=== PATIENT | female | born 1955 | race Caucasian/White ===

== ENCOUNTER → 2016-12-31 | Outpatient (CLI) | payer BC ==
[~2016-12-31] VITALS: Ht 157.5 cm; Wt 85.3 kg
[~2016-12-31] MED LIST: ASPI1TAB PO; HYDR25TA6 PO; IBUP800T23 PO; LIDOCAINE 2% INJ 100 MG/5 ML SDV (FOR ANES.) As Ordered ONE; LISI10TA2 PO; LOPR1TAB6 PO; MAGN250T11 PO; METACYCLINE PO; MINO100T PO; NS 1,000 ML IV ONE; PRIN20TA3 PO; PROPOFOL 200 MG/20 ML VIAL As Ordered ONE; RANI150T PO; SIMETHICONE 40MG/0.6ML DROPS 30ML As Ordered ONE; VITA200016 PO; [UNRECOGNIZED DRUG - OTHER]
--- NOTE | 2016-12-31 07:55 | ROOR ---
Patient Name: Toña Witt Procedure Date: 12/31/2016 7:31 AM Date of : 1955 Age: 61 Room: [facility] Gender: Female Note Status: Finalized Procedure: Upper GI endoscopy + Biopsies Indications: Epigastric abdominal pain Providers: Jason Miller MD Referring MD: Jay Sanchez MD Requesting Provider: Medicines: Monitored Anesthesia Care Complications: No immediate complications. Procedure: Pre-Anesthesia Assessment: - The heart rate, respiratory rate, oxygen saturations, blood pressure, adequacy of pulmonary ventilation, and response to care were monitored throughout the procedure. The Endoscope was introduced through the mouth, and advanced to the second part of duodenum. The upper GI endoscopy was accomplished without difficulty. The patient tolerated the procedure well. Findings: The Z-line was regular and was found 35 cm from the incisors. Diffuse mildly erythematous mucosa without bleeding was found in the gastric antrum. Biopsies were taken with a cold forceps for Helicobacter pylori testing. The exam was otherwise without abnormality. Impression: - Z-line regular, 35 cm from the incisors. - Erythematous mucosa in the antrum. Biopsied. - The examination was otherwise normal. Recommendation: - Patient has a contact number available for emergencies. The signs and symptoms of potential delayed complications were discussed with the patient. Return to normal activities tomorrow. Written discharge instructions were provided to the patient. - High fiber diet. - Discharge patient to home. - Continue present medications. - Await pathology results. - Telephone GI clinic for pathology results in 1 week. - Check Portal Online for Path Results.([email or web address] - Return to referring physician. - The findings and recommendations were discussed with the patient's family. Jason Miller MD Jason Miller MD 12/31/2016 7:54:55 AM This report has been signed electronically. Number of Addenda: 0 Note Initiated On: 12/31/2016 7:31 AM Estimated Blood Loss: Estimated blood loss: none.
--- NOTE | 2016-12-31 08:10 | ROOR ---
Patient Name: Toña Witt Procedure Date: 12/31/2016 7:31 AM Date of : 1955 Age: 61 Room: [facility] Gender: Female Note Status: Finalized Procedure: Colonoscopy to Cecum Indications: Screening for colorectal malignant neoplasm Providers: Jason Miller MD Referring MD: Jay Sanchez MD Requesting Provider: Medicines: Monitored Anesthesia Care Complications: No immediate complications. Procedure: Pre-Anesthesia Assessment: - The heart rate, respiratory rate, oxygen saturations, blood pressure, adequacy of pulmonary ventilation, and response to care were monitored throughout the procedure. The Colonoscope was introduced through the anus and advanced to the cecum, identified by appendiceal orifice and ileocecal valve. The colonoscopy was performed without difficulty. The patient tolerated the procedure well. The quality of the bowel preparation was excellent. Findings: The perianal and digital rectal examinations were normal. Non-bleeding internal hemorrhoids were found during retroflexion. The hemorrhoids were small and Grade I (internal hemorrhoids that do not prolapse). Scattered small-mouthed diverticula were found in the recto-sigmoid colon and sigmoid colon. The exam was otherwise without abnormality on direct and retroflexion views. Impression: - Non-bleeding internal hemorrhoids. - Diverticulosis in the recto-sigmoid colon and in the sigmoid colon. - The examination was otherwise normal on direct and retroflexion views. - No specimens collected. - The exam was otherwise normal to the cecum. Recommendation: - Patient has a contact number available for emergencies. The signs and symptoms of potential delayed complications were discussed with the patient. Return to normal activities tomorrow. Written discharge instructions were provided to the patient. - High fiber diet. - Discharge patient to home. - Continue present medications. - Repeat colonoscopy in 10 years for screening purposes. - Return to referring physician. - The findings and recommendations were discussed with the patient's family. Jason Miller MD Jason Miller MD 12/31/2016 8:10:20 AM This report has been signed electronically. Number of Addenda: 0 Note Initiated On: 12/31/2016 7:31 AM Estimated Blood Loss: Estimated blood loss: none.
[2016-12-31 08:30] VITALS: BP 113/69
== END ==
LOC: M OPP 06:44
PROVIDERS: ATTEND Internal Medicine Gastroenterology
DX: Z12.11 Encounter for screening for malignant neoplasm of colon (principal); K29.50 Unspecified chronic gastritis without bleeding; K64.0 First degree hemorrhoids; K57.30 Diverticulosis of large intestine without perforation or abscess without bleeding; R10.13 Epigastric pain; K31.89 Other diseases of stomach and duodenum; Z79.899 Other long term (current) drug therapy
CPT/HCPCS: 43239; 88305; 99156; 99157; G0121

== ENCOUNTER → 2017-01-06 | Outpatient (CLI) | payer BC ==
[~2017-01-06] MED LIST changes: -LIDOCAINE 2% INJ 100 MG/5 ML SDV (FOR ANES.) As Ordered ONE; -NS 1,000 ML IV ONE; -PROPOFOL 200 MG/20 ML VIAL As Ordered ONE; -SIMETHICONE 40MG/0.6ML DROPS 30ML As Ordered ONE
--- NOTE | 2017-01-09 09:53 | SLEEPCENT ---
DATE OF PROCEDURE: 01/06/2017 ORDERED BY: Dr. Shun Thorpe Nocturnal polysomnography was performed for evaluation of sleep apnea syndrome symptoms in this patient with abnormal nocturnal recording oximetry. 7 hours and 46 minutes of data were reviewed. There were 279 minutes of sleep identified. Sleep latency was prolonged at 32 minutes Rapid eye movement (REM) latency was prolonged at 155 minutes. Sleep architecture showed fragmentation. There was a prolonged period of wake between 2:45 and 4:30 resulting in a reduced sleep efficiency of 60.8%. EKG showed a sinus rhythm with rate variabilities surrounding respiratory events. Average heart rate 66 beats per minute. Heart rate ranged 60-90 beats per minute. EEG showed normal wave forms for awake and sleep stages. There were 43 respiratory events identified of 10 seconds in duration or greater for an apnea-hypopnea index of 9.2. The events were primarily obstructive not exclusive to sleep stage nor body posture. Arousals from respiratory events occurred 4.1 times per hour. Oxygen desaturations were seen into the low 80s. There was some minor limb activity more so early in the course of the study. Limb movement arousal index was 6.2. IMPRESSION: 1. Obstructive sleep apnea syndrome (G47.33). Apnea-hypopnea index 9.2. 2. Possible mild periodic limb movement disorder (G47.61). Limb movement arousal index 6.2. RECOMMENDATION: The patient should be encouraged to return to the sleep disorder center for pressure therapy. In the interim, alcohol and sedative avoidance should be practiced and caution exercised during operation of motor vehicles.
== END ==
LOC: M SLEEP 19:59
PROVIDERS: ATTEND Internal Medicine Pulmonary Disease
DX: G47.33 Obstructive sleep apnea (adult) (pediatric) (principal); G47.61 Periodic limb movement disorder

== ENCOUNTER → 2017-01-13 | Outpatient (CLI) | payer BC ==
--- NOTE | 2017-01-16 07:58 | SLEEPCENT ---
DATE OF PROCEDURE: 01/13/2017 ORDERED BY: Dr. Shun Thorpe Nocturnal polysomnography was performed for the titration of pressure therapy in this patient with obstructive sleep apnea syndrome, apnea-hypopnea index 9.2. For testing, a [employer] ComfortGel mask of small size was used. 4 cm of water pressure were applied to the circuit and the lights were extinguished. 7 hours and 39 minutes of data were reviewed. There were 315 minutes of sleep identified. Sleep latency was short at 8 minutes. Rapid eye movement (REM) latency was mildly prolonged at 112 minutes. Sleep architecture improved with optimal pressure therapy. Overall sleep efficiency was reduced at 69.5% due to a period of wake between 3:00 and 4:30 a.m. The EKG showed a sinus rhythm with an average heart rate of 61 beats per minute. EEG showed normal waveforms for awake and sleep. Respiratory events were found best palliated with continuous positive airway pressure (CPAP) at a pressure of +6. Late in the study, a trial of bilevel therapy was attempted. Limb activity appreciated on the first diagnostic study was significantly less on this test. IMPRESSION: Obstructive sleep apnea syndrome (G47.33). RECOMMENDATION: Nightly use of pressure therapy 6 cm of water. Copy To: Dr. Sanchez
== END ==
LOC: M SLEEP 22:00
PROVIDERS: ATTEND Internal Medicine Pulmonary Disease
DX: G47.33 Obstructive sleep apnea (adult) (pediatric) (principal)

== ENCOUNTER → 2017-03-17 | Outpatient (REF) | payer BC ==
[~2017-03-17] MED LIST changes: +IBUP1TAB7 PO; -IBUP800T23 PO
== END ==
LOC: M LAB REF 17:22
PROVIDERS: ATTEND Specialist
DX: Z12.4 Encounter for screening for malignant neoplasm of cervix (principal)

== ENCOUNTER → 2017-03-24 | Outpatient (CLI) | payer BC ==
--- NOTE | 2017-03-24 17:04 | REPMRS ---
Patient History The patient states she had a clinical breast exam in February 2017.Patient is postmenopausal. No known family history of cancer. Digital Mammo Screening Bilat: March 24, 2017 - Exam #: [id number] Bilateral CC and MLO view(s) were taken. Technologist: Bernadette Tomlinson, Technologist Prior study comparison: November 11, 2015, bilateral digital mammo screening bilat performed at [facility]. August 30, 2014, bilateral digital mammo screening bilat performed at [facility]. FINDINGS: There are scattered fibroglandular densities. There has been no change in the appearance of the mammogram from the prior studies. There is a mild amount of residual fibroglandular tissue which is fairly symmetric. There is no interval development of dominant mass, architectural distortion, or clustered microcalcification suggestive of malignancy. ASSESSMENT: BI-RADS/ACR category 1 mammogram. Negative. Recommendation Routine screening mammogram in 1 year (for women over age 40). This mammogram was interpreted with the aid of an FDA-approved computer-aided dectection system. Electronically Signed By: Patrick Vargas MD 03/24/17 [id number]
== END ==
LOC: M RAD 15:34
PROVIDERS: ATTEND Specialist
DX: Z12.31 Encounter for screening mammogram for malignant neoplasm of breast (principal)

== ENCOUNTER → 2017-09-16 | Outpatient (CLI) | payer BC ==
[2017-09-16 07:25] LABS: HEMATOCRIT 41.3 % (36.0-47.0); HEMOGLOBIN 14.2 g/dl (12.0-16.0); MEAN CORPUSCULAR HEMOGLOBIN 30.9 pg (27.0-33.0); MEAN CORPUSCULAR HGB CONC 34.4 g/dl (32.0-36.5); PLATELET COUNT, AUTOMATED 371 10^3/uL (150-450); RED BLOOD COUNT 4.59 10^6/uL (4.00-5.40); RED CELL DISTRIBUTION WIDTH 12.5 % (11.5-14.5); WHITE BLOOD COUNT 6.8 10^3/uL (4.0-10.0)
[2017-09-16 07:52] LABS: ALBUMIN 4.1 GM/DL (3.2-5.2); ALBUMIN/GLOBULIN RATIO 1.32 (1.00-1.93); ALKALINE PHOSPHATASE 65 U/L (45-117); ALT/SGPT 42 U/L (12-78); ANION GAP 5 MEQ/L (8-16); AST/SGOT 24 U/L (7-37); BILIRUBIN,TOTAL 0.4 MG/DL (0.2-1.0); BLOOD UREA NITROGEN 19 MG/DL (7-18); CALCIUM LEVEL 9.1 MG/DL (8.8-10.2); CARBON DIOXIDE LEVEL 33 MEQ/L (21-32); CHLORIDE LEVEL 103 MEQ/L (98-107); CHOLESTEROL LEVEL 226 MG/DL (<200); CHOLESTEROL RISK RATIO 4.808 (<5); GLOMERULAR FILTRATION RATE > 60.0 (>45); GLUCOSE, FASTING 99 MG/DL (80-110); HDL CHOLESTEROL 47 MG/DL (>40); LDL CHOLESTEROL 148.4 MG/DL (<100); MAGNESIUM LEVEL 2.3 MG/DL (1.8-2.4); NON-HDL-C 179 MG/DL; POTASSIUM SERUM 4.2 MEQ/L (3.5-5.1); SODIUM LEVEL 141 MEQ/L (136-145); TOTAL PROTEIN 7.2 GM/DL (6.4-8.2); TRIGLYCERIDES LEVEL 153 MG/DL (<150)
== END ==
LOC: M LAB 06:28
DX: Z00.00 Encounter for general adult medical examination without abnormal findings (principal); G25.81 Restless legs syndrome; E78.00 Pure hypercholesterolemia, unspecified
CPT/HCPCS: 83735

== ENCOUNTER → 2018-03-30 | Outpatient (REF) | payer BC ==
[2018-04-04 00:06] LABS: VARICELLA ZOSTER VIRUS PCR Negative (Negative)
== END ==
LOC: M SFHCPLAZ 15:55
DX: L23.9 Allergic contact dermatitis, unspecified cause (principal)
CPT/HCPCS: 87798

== ENCOUNTER → 2018-06-01 | Outpatient (CLI) | payer BC | LOC: M RAD 12:38 | DX: Z12.31 Encounter for screening mammogram for malignant neoplasm of breast (principal) | CPT/HCPCS: 77067 ==

== ENCOUNTER → 2018-09-15 | Outpatient (REF) | payer BC | LOC: M SFHCPLAZ 06:35 | PROVIDERS: ATTEND Internal Medicine | DX: Z00.00 Encounter for general adult medical examination without abnormal findings (principal); E78.00 Pure hypercholesterolemia, unspecified; I10 Essential (primary) hypertension; Z86.2 Personal history of diseases of the blood and blood-forming organs and certain disorders involving the immune mechanism; E55.9 Vitamin D deficiency, unspecified; I48.0 Paroxysmal atrial fibrillation ==

== ENCOUNTER → 2018-09-19 | Outpatient (REF) | payer BC ==
[2018-09-19 16:59] LABS: HEMATOCRIT 42.6 % (36.0-47.0); HEMOGLOBIN 14.5 g/dl (12.0-15.5); MEAN CORPUSCULAR HEMOGLOBIN 30.7 pg (27.0-33.0); MEAN CORPUSCULAR VOLUME 90.1 fl (80.0-96.0); PLATELET COUNT, AUTOMATED 371 10^3/uL (150-450); RED BLOOD COUNT 4.73 10^6/uL (4.00-5.40)
[2018-09-19 17:04] LABS: ALBUMIN 4.2 GM/DL (3.2-5.2); ALT/SGPT 52 U/L (12-78); BILIRUBIN,TOTAL 0.4 MG/DL (0.2-1.0); BLOOD UREA NITROGEN 15 MG/DL (7-18); CALCIUM LEVEL 9.1 MG/DL (8.8-10.2); CARBON DIOXIDE LEVEL 28 MEQ/L (21-32); CHLORIDE LEVEL 104 MEQ/L (98-107); CREATININE FOR GFR 0.78 MG/DL (0.55-1.30); GLOMERULAR FILTRATION RATE > 60.0 (>45); GLUCOSE, FASTING 109 MG/DL (70-100); MAGNESIUM LEVEL 2.4 MG/DL (1.8-2.4); POTASSIUM SERUM 4.3 MEQ/L (3.5-5.1); SODIUM LEVEL 140 MEQ/L (136-145); TOTAL PROTEIN 7.1 GM/DL (6.4-8.2)
[2018-09-19 17:11] LABS: CHOLESTEROL RISK RATIO 4.391 (<5); THYROID STIMULATING HORMONE 1.43 uIU/ML (0.358-3.740); TOTAL 25(OH) VITAMIN D 50.4 NG/ML (30.0-100.0)
[2018-09-19 17:30] LABS: HEMOGLOBIN A1c 5.8 %
== END ==
LOC: M SFHCCLAY 09:43
PROVIDERS: ATTEND Internal Medicine
DX: E78.00 Pure hypercholesterolemia, unspecified (principal); E55.9 Vitamin D deficiency, unspecified; I48.0 Paroxysmal atrial fibrillation; Z86.2 Personal history of diseases of the blood and blood-forming organs and certain disorders involving the immune mechanism

== ENCOUNTER → 2019-01-01 | Outpatient (REF) | payer BC ==
[~2019-01-01] MED LIST changes: -ASPI1TAB PO; +ASPI81TA26 PO
== END ==
LOC: M SFHCPLAZ 13:46
PROVIDERS: ATTEND Dermatology
DX: D48.5 Neoplasm of uncertain behavior of skin (principal)

== ENCOUNTER → 2019-06-26 | Outpatient (REF) | payer BC ==
[~2019-06-26] MED LIST changes: +LISI10TA15 PO; -LISI10TA2 PO
[2019-06-30 14:58] LABS: HPV HYBRID CAPTURE II Negative (Negative)
== END ==
LOC: M LAB REF 13:37
PROVIDERS: ATTEND Specialist
DX: Z12.4 Encounter for screening for malignant neoplasm of cervix (principal)
CPT/HCPCS: 87624; G0123

== ENCOUNTER → 2019-07-02 | Outpatient (CLI) | payer BC ==
--- NOTE | 2019-07-02 15:54 | REPMRS ---
Patient History The patient states she had a clinical breast exam in 2018. Family history of unknown cancer at age 35 in daughter. Digital Mammo Screening Bilat: July 02, 2019 - Exam #: [id number] Bilateral CC and MLO view(s) were taken. Technologist: Bernadette Tomlinson, Technologist Prior study comparison: June 01, 2018, bilateral digital mammo screening bilat performed at [facility]. March 24, 2017, bilateral digital mammo screening bilat performed at [facility]. November 11, 2015, bilateral digital mammo screening bilat performed at [facility]. FINDINGS: There are scattered fibroglandular densities. There is a needle biopsy marker clip in the right breast. There has been no change in the appearance of the mammogram from the prior studies. There is a mild amount of scattered fibroglandular density which is fairly symmetric. There is no interval development of dominant mass, architectural distortion, or grouped microcalcification suggestive of malignancy. 3-D tomosynthesis shows no additional findings. Assessment: BI-RADS/ACR category 2 mammogram. Benign Findings. Recommendation Routine screening mammogram of both breasts in 1 year (for women over age 40). This patient's Lifetime Breast Cancer Risk is estimated at 8.1 %. This mammogram was interpreted with the aid of an FDA-approved computer-aided dectection system. Electronically Signed By: Ruddy Mcmanus MD 07/02/19 [id number]
== END ==
LOC: M RAD 14:32
PROVIDERS: ATTEND Specialist
DX: Z12.31 Encounter for screening mammogram for malignant neoplasm of breast (principal)

== ENCOUNTER → 2019-07-03 | Outpatient (CLI) | payer BC ==
--- NOTE | 2019-07-03 17:13 | REP ---
MRI right knee without contrast: History: Unilateral primary osteoarthritis right knee. Question meniscal tear. Difficulty walking. Injury one half week ago. Comparison right knee radiographs are from July 02, 2009. No recent radiographs. Technique: Axial, coronal and sagittal imaging planes utilized. T1 and T2-weighted scans obtained with and without fat saturation in the usual fashion. MRI findings: Incidental note is made of superficial vein varicosities at the level of the knee. Cortical and medullary bone signal intensity are normal. There is no evidence of occult fracture. There is a small joint effusion. There is a tiny sliver of fluid in the anatomic location of Ibarra's cyst. No bill Ibarra's cyst is seen. There is some subcutaneous edema anteriorly and medially at the level of the knee. Patellar retinacular structures appear intact. Patellar tendon and quadriceps tendons are intact. There is minimal superior pole patellar spurring at the quadriceps tendon insertion. Anterior and posterior cruciate ligaments are intact. There is no evidence of medial or lateral collateral ligament disruption. There is moderate chondromalacia with partial thickness cartilage irregularity involving the medial and lateral femoral condyles and medial tibial plateau. There is moderate chondromalacia involving the lateral patellar facet and to a lesser extent in the medial patellar articular cartilage. There is increased signal intensity in the midbody of the medial meniscus with mild medial extrusion. Blunting of the inner free margin. Findings consistent with a degenerative midbody medial meniscal tear. There is also a component of the tear in the posterior horn of the medial meniscus as well. No lateral meniscal tear is appreciated. Impression: Complex tear midbody and posterior horn medial meniscus. Some medial meniscal extrusion. Moderate chondromalacia in all three compartments. Small joint effusion. Electronically Signed by Flakito Mcmanus MD 07/03/2019 07:52 P
== END ==
LOC: M RAD 15:48
PROVIDERS: ATTEND Orthopaedic Surgery
DX: M17.11 Unilateral primary osteoarthritis, right knee (principal)

== ENCOUNTER → 2019-07-11 | Outpatient (CLI) | payer BC ==
[2019-07-11 16:27] LABS: ALBUMIN 4.2 GM/DL (3.2-5.2); ALT/SGPT 39 U/L (12-78); BILIRUBIN,DIRECT < 0.1 MG/DL (0.0-0.2); BILIRUBIN,TOTAL 0.5 MG/DL (0.2-1.0); TOTAL PROTEIN 7.6 GM/DL (6.4-8.2)
== END ==
LOC: M LAB 14:54
PROVIDERS: ATTEND Dermatology
DX: B35.1 Tinea unguium (principal)

== ENCOUNTER 2019-07-20 12:45 | Outpatient (RCR) | payer BC | END 2019-07-28 | LOC: M PT 12:45 | PROVIDERS: ATTEND Orthopaedic Surgery | DX: S83.241A Other tear of medial meniscus, current injury, right knee, initial encounter (principal); M25.561 Pain in right knee ==

== ENCOUNTER → 2019-08-08 | Outpatient (CLI) | payer BC ==
[2019-08-08 19:14] LABS: ALT/SGPT 38 U/L (12-78); BILIRUBIN,DIRECT < 0.1 MG/DL (0.0-0.2); BILIRUBIN,TOTAL 0.4 MG/DL (0.2-1.0); TOTAL PROTEIN 7.2 GM/DL (6.4-8.2)
== END ==
LOC: M LAB 14:27
PROVIDERS: ATTEND Dermatology
DX: B35.1 Tinea unguium (principal)

== ENCOUNTER → 2019-08-18 | Outpatient (CLI) | payer BC ==
--- NOTE | 2019-08-18 13:24 | REPVR ---
PROCEDURE INFORMATION: Exam: MR Lumbar Spine Without Contrast. Exam date and time: 08/18/2019 12:33 PM Age: 64 years old Clinical indication: Low back pain TECHNIQUE: Imaging protocol: Multiplanar magnetic resonance images of the lumbar spine without intravenous contrast. COMPARISON: No relevant prior studies available. FINDINGS: Vertebrae: There is mild anterior subluxation of L4 over L5. Otherwise, The lumbar vertebral bodies are normal in height and alignment.No acute fracture or dislocation is seen. There is a hemangioma in the T12 vertebral body. Marrow: There is diffuse prominence of the hematopoietic bone marrow, disproportionate for this patient's age. This can represent the effects of chronic anemia, chronic renal and liver disease, smoking, pharmacologic marrow stimulating factors, and infiltrating processes such as multiple myeloma, metastasis, lymphoma or leukemia. Clinical correlation is recommended. Spinal epidural space: There is no evidence of epidural masses or hemorrhage. Spinal cord: The conus medullaris is normal. The cauda equina nerve roots demonstrate no crowding or displacement. L1-L2: There is no significant degenerative disc herniation.The spinal canal and neural foramina are patent and without significant stenosis. L2-L3: There is no significant degenerative disc herniation.The spinal canal and neural foramina are patent and without significant stenosis. L3-L4: There is a mild diffuse posterior bulge causing mild effacement of the thecal sac.The facet joints demonstrate mild degenerative hypertrophy and sclerosis.There is mild bilateral foraminal stenosis. L4-L5: There is a mild diffuse posterior bulge causing mild effacement of the thecal sac.The facet joints demonstrate marked degenerative narrowing and sclerosis. There is thickening of the ligamentum flavum.There is mild spinal canal narrowing, with an AP canal dimension of 10 mm.There is mild left foraminal stenosis. There is severe right foraminal stenosis.There is compression on the exiting nerve root. L5-S1: There is a mild diffuse posterior bulge causing mild effacement of the thecal sac.The facet joints demonstrate marked degenerative narrowing and sclerosis. There is no evidence of spinal canal narrowing.There is mild bilateral foraminal stenosis. Soft tissues: The prevertebral soft tissues appear normal. IMPRESSION: MRI of the lumbar spine reveals mild multilevel degenerative spondylitic changes and degenerative disc disease as described above. There is diffuse prominence of the hematopoietic bone marrow, disproportionate for this patient's age. This can represent the effects of chronic anemia, chronic renal and liver disease, smoking, pharmacologic marrow stimulating factors, and infiltrating processes such as multiple myeloma, metastasis, lymphoma or leukemia. Clinical correlation is recommended. Electronically signed by: Enoc Swann On 08/18/2019 13:23:58 PM
== END ==
LOC: M RAD 12:27
PROVIDERS: ATTEND Orthopaedic Surgery
DX: M48.061 Spinal stenosis, lumbar region without neurogenic claudication (principal); M43.16 Spondylolisthesis, lumbar region; M51.36 Other intervertebral disc degeneration, lumbar region

== ENCOUNTER → 2019-08-24 | Outpatient (CLI) | payer BC ==
[2019-08-24 16:30] LABS: BASO # 0.1 10^3/uL (0.0-0.2); BASO % 1.1 % (0.0-1.0); EOS # 0.3 10^3/uL (0.0-0.5); EOS % 3.4 % (0.0-3.0); HEMATOCRIT 41.1 % (36.0-47.0); HEMOGLOBIN 13.9 g/dl (12.0-15.5); LYMPH # 2.1 10^3/uL (1.5-5.0); LYMPH % 28.3 % (24.0-44.0); MEAN CORPUSCULAR HEMOGLOBIN 31.4 pg (27.0-33.0); MEAN CORPUSCULAR HGB CONC 33.8 g/dl (32.0-36.5); MEAN CORPUSCULAR VOLUME 92.8 fl (80.0-96.0); MONO # 0.5 10^3/uL (0.0-0.8); MONO % 6.9 % (0.0-5.0); NEUTROPHILS # 4.5 10^3/uL (1.5-8.5); PLATELET COUNT, AUTOMATED 337 10^3/uL (150-450); RED BLOOD COUNT 4.43 10^6/uL (4.00-5.40); WHITE BLOOD COUNT 7.4 10^3/uL (4.0-10.0)
[2019-08-24 16:48] LABS: HEMOGLOBIN A1c 6.3 %
[2019-08-24 17:02] LABS: ALBUMIN 3.8 GM/DL (3.2-5.2); ALT/SGPT 36 U/L (12-78); BILIRUBIN,TOTAL 0.2 MG/DL (0.2-1.0); BLOOD UREA NITROGEN 21 MG/DL (7-18); CALCIUM LEVEL 9.5 MG/DL (8.8-10.2); CARBON DIOXIDE LEVEL 31 MEQ/L (21-32); CHLORIDE LEVEL 104 MEQ/L (98-107); CHOLESTEROL LEVEL 203 MG/DL (<200); CHOLESTEROL RISK RATIO 4.613 (<5); CREATININE FOR GFR 0.81 MG/DL (0.55-1.30); FERRITIN 83 NG/ML (8-252); GLOMERULAR FILTRATION RATE > 60.0 (>45); GLUCOSE, FASTING 107 MG/DL (70-100); HDL CHOLESTEROL 44 MG/DL (>40); LDL CHOLESTEROL 109 MG/DL (<100); MAGNESIUM LEVEL 2.5 MG/DL (1.8-2.4); NON-HDL-C 159 MG/DL; RHEUMATOID FACTOR QUANT < 10.0 IU/ML (<15.0); SODIUM LEVEL 141 MEQ/L (136-145); TOTAL PROTEIN 7.2 GM/DL (6.4-8.2); TRIGLYCERIDES LEVEL 248 MG/DL (<150)
[2019-08-24 17:09] LABS: VITAMIN B12 LEVEL 316 PG/ML
[2019-08-24 17:10] LABS: FOLATE 7.9 NG/ML
[2019-08-24 19:29] LABS: ERYTHROCYTE SEDIMENTATION RATE 7 mm/hr (0-30)
== END ==
LOC: M LAB 15:52
PROVIDERS: ATTEND Internal Medicine
DX: D75.9 Disease of blood and blood-forming organs, unspecified (principal); I10 Essential (primary) hypertension; M19.90 Unspecified osteoarthritis, unspecified site; E78.00 Pure hypercholesterolemia, unspecified; G62.9 Polyneuropathy, unspecified; Z86.2 Personal history of diseases of the blood and blood-forming organs and certain disorders involving the immune mechanism

== ENCOUNTER 2019-08-27 11:56 | Outpatient (RCR) | payer BC | END 2019-08-28 | LOC: M PT 11:56 | PROVIDERS: ATTEND Orthopaedic Surgery | DX: S83.241D Other tear of medial meniscus, current injury, right knee, subsequent encounter (principal); W18.30XD Fall on same level, unspecified, subsequent encounter; Y92.009 Unspecified place in unspecified non-institutional (private) residence as the place of occurrence of the external cause ==

== ENCOUNTER → 2019-09-05 | Outpatient (CLI) | payer BC ==
[2019-09-07 00:06] LABS: Lyme Disease IgG/IgM Antibodie <0.91 ISR (0.00-0.90); Lyme Disease IgM Ab Quantitati <0.80 index (0.00-0.79)
== END ==
LOC: M LAB 13:35
PROVIDERS: ATTEND Internal Medicine
DX: M19.90 Unspecified osteoarthritis, unspecified site (principal)

== ENCOUNTER 2019-09-24 14:14 | Outpatient (RCR) | payer BC | END 2019-09-28 | LOC: M PT 14:14 | PROVIDERS: ATTEND Orthopaedic Surgery | DX: S83.241D Other tear of medial meniscus, current injury, right knee, subsequent encounter (principal); W18.30XD Fall on same level, unspecified, subsequent encounter; Y92.9 Unspecified place or not applicable ==

== ENCOUNTER → 2020-09-09 | Outpatient (CLI) | payer BC ==
--- NOTE | 2020-09-09 11:31 | REPMRS ---
Patient History The patient states she had a clinical breast exam in 08/2020 Patient is postmenopausal. Family history of unknown cancer at age 35 in daughter. Benign excisional biopsy of the right breast. 3D TOMOSYNTHESIS WAS PERFORMED. [facility] 7.8%. Volpara breast density b. Digital Woman Screen Mammo: September 09, 2020 - Exam #: [id number] Bilateral CC and MLO view(s) were taken. Technologist: Concetta Woo, Technologist Prior study comparison: July 02, 2019, bilateral digital mammo screening bilat, performed at [facility]. June 01, 2018, bilateral digital mammo screening bilat, performed at [facility]. FINDINGS: There are scattered fibroglandular densities. There has been no change in the appearance of the mammogram from the prior studies. There is a mild amount of residual fibroglandular tissue which is fairly symmetric. There is no interval development of dominant mass, architectural distortion, or clustered microcalcification suggestive of malignancy. Assessment: BI-RADS/ACR category 1 mammogram. Negative Mammogram. Recommendation Routine screening mammogram in 1 year (for women over age 40). This mammogram was interpreted with the aid of an FDA-approved computer-aided dectection system. Electronically Signed By: Patrick Vargas MD 09/09/20 [id number]
== END ==
LOC: M WHC 10:27
PROVIDERS: ATTEND Specialist
DX: Z12.31 Encounter for screening mammogram for malignant neoplasm of breast (principal); Z80.9 Family history of malignant neoplasm, unspecified; Z86.018 Personal history of other benign neoplasm

== ENCOUNTER → 2020-09-09 | Outpatient (REF) | payer BC ==
[2020-09-09 13:55] LABS: HEMATOCRIT 42.2 % (36.0-47.0); HEMOGLOBIN 13.5 g/dl (12.0-15.5); MEAN CORPUSCULAR HEMOGLOBIN 30.2 pg (27.0-33.0); MEAN CORPUSCULAR VOLUME 94.4 fl (80.0-96.0); PLATELET COUNT, AUTOMATED 373 10^3/uL (150-450); RED BLOOD COUNT 4.47 10^6/uL (4.00-5.40); WHITE BLOOD COUNT 5.1 10^3/uL (4.0-10.0)
[2020-09-09 16:26] LABS: ALBUMIN 3.8 GM/DL (3.2-5.2); ALT/SGPT 41 U/L (12-78); BILIRUBIN,TOTAL 0.6 MG/DL (0.2-1.0); BLOOD UREA NITROGEN 23 MG/DL (7-18); CALCIUM LEVEL 9.5 MG/DL (8.8-10.2); CARBON DIOXIDE LEVEL 33 MEQ/L (21-32); CHLORIDE LEVEL 103 MEQ/L (98-107); CHOLESTEROL LEVEL 235 MG/DL (<200); CHOLESTEROL RISK RATIO 4.519 (<5); CREATININE FOR GFR 0.72 MG/DL (0.55-1.30); GLOMERULAR FILTRATION RATE > 60.0 (>45); GLUCOSE, FASTING 108 MG/DL (70-100); HDL CHOLESTEROL 52 MG/DL (>40); LDL CHOLESTEROL 163 MG/DL (<100); MAGNESIUM LEVEL 2.5 MG/DL (1.8-2.4); NON-HDL-C 183 MG/DL; POTASSIUM SERUM 4.2 MEQ/L (3.5-5.1); SODIUM LEVEL 137 MEQ/L (136-145); TRIGLYCERIDES LEVEL 101 MG/DL (<150)
[2020-09-09 16:30] LABS: CREATININE, URINE 48.3 MG/DL; MALB URINE SIEMENS < 5.0 MG/L; MAU/CREAT RATIO 10.3 MCG/MG (0.0-30.0)
[2020-09-09 16:43] LABS: HEMOGLOBIN A1c 5.4 %
== END ==
LOC: M PLALAB 11:41
PROVIDERS: ATTEND Specialist
DX: Z00.00 Encounter for general adult medical examination without abnormal findings (principal); Z86.2 Personal history of diseases of the blood and blood-forming organs and certain disorders involving the immune mechanism; I10 Essential (primary) hypertension; R73.01 Impaired fasting glucose; E78.00 Pure hypercholesterolemia, unspecified
CPT/HCPCS: 36415; 80053; 80061; 82043; 83036; 83735; 85027; 87624; G0123

== ENCOUNTER → 2021-02-16 | Outpatient (REF) | payer BC ==
[2021-02-16 15:34] LABS: CHOLESTEROL LEVEL 215 MG/DL (<200); CHOLESTEROL RISK RATIO 4.215 (<5); HDL CHOLESTEROL 51 MG/DL (>40); HEPATITIS C VIRUS ABY INDEX < 0.0 INDEX (<0.8); LDL CHOLESTEROL 139 MG/DL (<100); NON-HDL-C 164 MG/DL; TRIGLYCERIDES LEVEL 127 MG/DL (<150)
== END ==
LOC: M PLALAB 11:12
PROVIDERS: ATTEND Internal Medicine
DX: Z11.59 Encounter for screening for other viral diseases (principal); E78.00 Pure hypercholesterolemia, unspecified

== ENCOUNTER → 2021-06-01 | Outpatient (REF) | payer BC | LOC: M SFHCWAGY 15:08 | PROVIDERS: ATTEND Specialist | DX: R10.2 Pelvic and perineal pain (principal) ==

== ENCOUNTER → 2021-06-24 | Outpatient (CLI) | payer BC ==
[~2021-06-24] MED LIST changes: +GASTROGRAFIN SOLUTION 30ML (Q9963) ONE; +ISOVUE-370 76% 100ML VIAL ONE
--- NOTE | 2021-06-24 14:30 | REP ---
INDICATION: PELVIC PAIN. COMPARISON: None. 06/09/2010. TECHNIQUE: Oral contrast was administered. CT abdomen and pelvis performed without IV contrast. CT abdomen and pelvis performed with the intravenous administration of 100 cc of Isovue 370. Sagittal and coronal reconstruction images are performed. FINDINGS: Lung bases: There are a few tiny benign calcified granulomas in each lung base.. Liver: Normal Gallbladder: Prior cholecystectomy. There is no biliary dilatation. Spleen: Normal. Adrenals: There is a benign left adrenal adenoma which measures approximately 2.3 x 1.4 cm. Pancreas: Normal. Kidneys: There is a punctate 2 mm calculus in the lower pole the left kidney.. There is no hydroureteronephrosis bilaterally. Multiple small parapelvic cysts are seen in both kidneys. There is a nonenhancing cystic structure of the lower pole the left kidney which measures 9 mm. Small and large bowel: Unremarkable. Free fluid: None. Abdominal aorta: No aneurysm or dissection. Adenopathy: None. Appendix: Not inflamed. Osseous structures: There are mild diffuse degenerative changes of the spine without compression fracture. There are mild degenerative changes at the hips bilaterally.. Pelvis: No mass. Bladder is unremarkable. There is a small umbilical hernia containing noninflamed fat. IMPRESSION: There are few tiny benign calcified granulomas in each lung base. Prior cholecystectomy, no biliary dilatation. Benign left adrenal adenoma 2.3 x 1.4 cm. Punctate 2 mm calculus lower pole left kidney. Multiple small bilateral parapelvic cysts. Nonenhancing 9 mm cyst lower pole left kidney. No evidence of bowel wall thickening or inflammation. No free air or free fluid. No evidence of a pelvic mass. Small umbilical hernia contains noninflamed fat. <Electronically signed by Patrick Vargas > 06/24/21 [id number]
== END ==
LOC: M PLAIMG 11:10
PROVIDERS: ATTEND Specialist
DX: J84.10 Pulmonary fibrosis, unspecified (principal); Z90.49 Acquired absence of other specified parts of digestive tract; D35.00 Benign neoplasm of unspecified adrenal gland; N20.0 Calculus of kidney; N28.1 Cyst of kidney, acquired; K42.9 Umbilical hernia without obstruction or gangrene
CPT/HCPCS: 74178; Q9963; Q9967

== ENCOUNTER → 2021-07-01 | Outpatient (REF) | payer BC ==
[~2021-07-01] MED LIST changes: -GASTROGRAFIN SOLUTION 30ML (Q9963) ONE; -ISOVUE-370 76% 100ML VIAL ONE
[2021-07-01 13:43] LABS: APPEARANCE, URINE CLEAR (CLEAR); BACTERIA, URINE AUTO NEGATIVE (NEGATIVE); BILIRUBIN, URINE AUTO NEGATIVE (NEGATIVE); BLOOD, URINE BLOOD NEGATIVE (NEGATIVE); COLOR, URINE STRAW (YELLOW); GLUCOSE, URINE (UA) AUTO NEGATIVE (NEGATIVE); KETONE, URINE AUTO NEGATIVE (NEGATIVE); LEUKOCYTE ESTERASE, URINE AUTO NEGATIVE (NEGATIVE); NITRITE, URINE AUTO NEGATIVE (NEGATIVE); PROTEIN, URINE AUTO NEGATIVE (NEGATIVE); RBC, URINE AUTO 0 /HPF (0-3); SQUAMOUS EPITHELIAL CELL UR AU 0 /HPF (0-6); UROBILINOGEN, URINE AUTO 0.2 mg/dL (0.0-2.0); WBC, URINE AUTO 0 /HPF (0-3)
== END ==
LOC: M SFHCPLAZ 12:57
PROVIDERS: ATTEND Internal Medicine
DX: R82.90 Unspecified abnormal findings in urine (principal)

== ENCOUNTER → 2021-07-13 | Outpatient (CLI) | payer BC ==
[~2021-07-13] MED LIST changes: +HYDR12.55 PO
== END ==
LOC: M LABSMTC 09:35
PROVIDERS: ATTEND Anesthesiology
DX: Z01.812 Encounter for preprocedural laboratory examination (principal); Z20.822 Contact with and (suspected) exposure to COVID-19

== ENCOUNTER 2021-07-17 08:45 | Day surgery (SDC) | payer BC ==
[~2021-07-17] VITALS: Ht 157.5 cm; Wt 94.7 kg
[~2021-07-17 08:45] MED LIST changes: +BSS IRR 500ML/OMIDRIA 4ML IRR BAG (OR ONLY) As Ordered ONE; +DUOVISC (0.50ML VISCOAT/0.85ML PROVISC) OPHTH KIT As Ordered ONE; +MOXIFLOXACIN 0.8MG 0.8ML INTRAOCULAR SYRINGE As Ordered ONE; +OFLOXACIN 0.3 % (OCUFLOX) OPTH SOL 5ML OS SCH; +PHENYLEPHRINE 1.5%/LIDOCAINE 1% INTRAOCULAR 0.8ML SYRINGE As Ordered ONE; +PHENYLEPHRINE 2.5% OPHTH SOL 2ML OS SCH; +PROPARACAINE 0.5% OPHTH SOL 15ML OS ONE; +TROPICAMIDE 1% OPHTH SOLN 2ML OS SCH
--- OUTSIDE RECORDS SUMMARY | 2021-07-17 08:48 | CCD | Continuity of Care Document ---
Author Author Toña THORPE DO Organization Unknown Address [address] [place] [address] Phone [phone] Care Team Providers Care Web Press Operator Apprentice Name Role Phone Jay Sanchez M.D. [facility] [phone] Problems Active Problems Provider Date Essential hypertension Epi Blake MD Onset: 08/13/2014 Social History Type Date Description Comments Sex Unknown ETOH Use 5 A Week Tobacco Use Reviewed: 04/15/20 Non Smoker Smoking Status Reviewed: 04/15/20 Non Smoker Exercise Type/Frequency Occasional Mild Exercise Allergies, Adverse Reactions, Alerts Active Allergies Criticality Reaction | Severity Comments Date Penicillin Unable to assess criticality 08/13/2014 Codeine Unable to assess criticality 08/13/2014 Medications Active Medications SIG Qnty Indications Ordering Provide r Date Vitamin D 2000Unit Capsules q d Epi Blake MD 08/13/2014 Magnesium Sulfate 250mg Capsules qd Epi Blake MD 08/13/2014 Minocycline HCL 100mg Tablets qd prn rosacea flare up Epi Blake MD 08/13/2014 Lisinopril 20mg Tablets once a day Unknown Hydrochlorothiazide 12.5mg Tablets 1 by mouth every day 7tabs Unknown Metoprolol Tartrate 25mg Tablets bid Unknown Aspirin 81mg Tablets DR 1/day Unknown CPAP Device 6cm Shun Thorpe DO Famotidine 20mg Tablets as needed 60tabs Unknown Acetaminophen 500mg Tablets 2 tabs by mouth every night 60tabs Unknown Immunizations CPT Code Status Date Vaccine Lot # [id number] Given 07/19/2016 Influenza Virus Split 3 Yrs And Above For Intramuscular Use Vital Signs Date Vital Result Comment 04/16/2021 9:45am BP Systolic 134 mmHg BP Diastolic 72 mmHg Heart Rate 68 /min O2 % BldC Oximetry 97 % Height 62 inches 5'2" Weight 201.00 lb BMI (Body Mass Index) 36.8 kg/m2 [place] Body Weight 110 lb Weight 91.174 kg BSA (Body Surface Area) 1.92 m2 04/15/2020 8:59am BP Systolic 110 mmHg BP Diastolic 70 mmHg Heart Rate 56 /min O2 % BldC Oximetry 98 % Body Temperature 96.2 F Height 62 inches 5'2" Weight 204.00 lb BMI (Body Mass Index) 37.3 kg/m2 [place] Body Weight 110 lb Weight 92.534 kg BSA (Body Surface Area) 1.93 m2 Results Description No Information Available Procedures Date Code Description Status 04/16/2021 07118 Office/Outpatient Established Lo w MDM 20-29 Min Completed 07/02/2019 [id number] Mammogram Completed 06/01/2018 [id number] Mammogram Completed 03/24/2017 [id number] Mammogram Completed 11/11/2015 [id number] Mammogram Completed Medical Devices Description No Information Available Encounters Type Date Location Provider Dx Diagnosis Office Visit 04/16/2021 9:30a [facility] nehemiah Thorpe DO G47.33 Obstructive sleep apnea (tania lt) (pediatric) Assessments Date Code Description Provider 04/16/2021 G47.33 Obstructive sleep apnea (adult) (pediatric) Shun Thorpe DO Plan of Treatment 04/16/2021 - Shun Thorpe DO* G47.33 Obstructive sleep apnea (adult) (pediatric) * * Comments:* ~ Having reviewed the history, physical, and diagnostic findings with the patient, I have recommended continued nightly use of pressure therapy, and we will arrange for a follow-up visit in one year. I will send a prescription to the home care company for needed supplies, and should she develop any issues, she has agreed to call us. * Follow up:* One year follow-up please. Functional Status Description No Information Available Mental Status Description No Information Available Referrals Description No Information Available
--- OUTSIDE RECORDS SUMMARY | 2021-07-17 08:48 | CCD ---
Author Author [facility] [employer] [facility] [employer] Organization [facility] [employer] Address Unknown Phone Unavailable Care Team Providers Care Sprayer Leather Name Role Phone Epi Blake Unavailable PROBLEMS Type Condition ICD9-CM Code [id number] Code Onset Dates Condition S tatus W/U Status Risk SNOMED Code Notes Problem Acne rosacea L71.9 Active confirmed [id number] Continue oral antibiotic as needed, minocycline, and dermatologic follow-up. Problem Osteoarthritis M19.90 Active confirmed 89550 5006 Diffuse osteoarthritis, on p.r.n. Tylenol. She has had previous evaluations with physical therapy and orthopedics. See MRI report from July 2019. Lyme disease testing was negative but she had a normal ESR, CRP, rheumatoid arthritis testing in July 2019. There was concern about a hemopoietic disorder but this was ruled out by laboratory testing in July 2019. She is treating this with exercise primarily. Problem Vitamin D deficiency E55.9 Active confirmed [id number] Discovered 10/07. Last Vitamin D level was 50 in August 2018, on replacement therapy. Problem Paroxysmal atrial fibrillation I48.0 Active confir med [id number] She had atrial fibrillation requiring hospitalization in August 2015. She had mild hypokalemia at presentation. Her magnesium level was apparently normal. Thyroid function tests were normal. Left atrial diameter was 4.3 centimeters on echocardiogram in August 2015, 4 cm on a stress echo in December 2016, with normal left ventricular function and no evident valvular heart disease. She is now on a beta jailyn. An event monitor was negative in December 2016 for atrial fibrillation episodes. She is taking a baby aspirin a day and has discussed anticoagulation with her single needle tufting machine operator, who has recommended but she has been refractory. She has not had significant palpitations since she started CPAP therapy. Problem History of iron deficiency anemia Z86.2 Active confirmed [id number] CBC was normal most recently in August 2020. She has been off iron since 2011. She has been through menopause. She is up-to-date with colonoscopies. Problem Elevated fasting glucose R73.01 Active confirmed 39137748 Her most recent fasting glucose was stable at 108 with a hemoglobin A1c of 5.4% in August 2020. No need for pharmacologic intervention. Problem Hypertension I10 Active confirmed 1046886 3 She had been on lisinopril hydrochlorothiazide 10/12.5 mg daily until her hospitalization in August 2015 for atrial fibrillation, at which time metoprolol was added to her regimen, her hydrochlorothiazide was reduced to 6.25 mg daily, and lisinopril was increased to 20 mg daily. Since hydrochlorothiazide cannot be taken at such a low dose, she is to continue 12-1/2 mg daily. Her blood pressure control is optimal as of outpatient visits review when I saw her in September 2020 remotely. Problem Rosacea L71.9 Active confirmed 676975142 Problem Restless leg syndrome G25.81 Active confirmed 84011079 In general, her symptoms became better controlled with adequate iron stores and a magnesium supplement. She has issues in the early evening hours but not during the night. Problem Sensory neuropathy G62.9 Active confirmed 9 3412270 She describes neuropathic symptoms of her hands which I think is probably carpal tunnel syndrome. She also has heel numbness which may relate to compression neuropathy. Serologic evaluations been negative in the past and I will repeat B12 and folate levels in August 2021. Problem Lung nodule R91.1 Active confirmed 31158930 5 She had a lesion on her CT scan in January 2013 this was stable on CT in 07/2014. No further CT's are needed. Problem Hypercholesterolemia E78.00 Active confirmed 27700193 Lipids had been historically borderline but acceptable for primary prevention. Her LDL was most recently elevated at 163 in August 2020. We discussed statin therapy and she is not enthusiastic. She will have her lipids rechecked in January 2021 just before her cardiology visit. Problem Obstructive sleep apnea syndrome G47.33 Active conf irmed [id number] This was diagnosed in Spring 2016 and she is on CPAP +6 cm of water. ALLERGIES Allergen (clinical drug ingredient) Drug/Non Drug Allergy do cumented on EMR Reaction Allergy Type Onset Date Status Codeine Phosphate([facility] Code:[address]-46) Unknown Drug Allergy Active Penicillin (For Allergies Use Only) Unknown Drug Allerg y Active ENCOUNTERS from 1955 to 2021-06-11 Encounter Location Date Provider Diagnosis [facility] [address] [facility] [phone] [place] [address] May, Epi Blake Pelvic pain R10.2 IMMUNIZATIONS Vaccine Route Administration Date Status COVID-19 dose #2 given elsewhere Unspecified Unknown Nov Administered COVID-19 dose #1 given elsewhere Unspecified Unknown Nov Administered SOCIAL HISTORY Tobacco Use: Social History Observation Description Date Details (start date - stop date) Never Smoker Sex Assigned At : Social History Observation Description Sex Assigned At Unknown Audit Question Answer Notes Total Score: 4 Interpretation: Alcohol Education Language: Question Answer Notes Languages spoken: Telugu Sabianist: Question Answer Notes Sabianist No adventist beliefs that would impact health care. Domestic Violence: Question Answer Notes Status: Sexual Hx: Question Answer Notes Had sex in the last 12 months (vaginal, oral, or anal)? Yes Have you ever had an STD? No with Men only Drug and Alcohol Question Answer Notes Total Score: 0 Interpretation: No problems reported Tobacco Use: Question Answer Notes Are you a: never smoker never smoker REASON FOR REFERRAL No Information VITAL SIGNS No information MEDICATIONS Medication SIG (Take, Route, Frequency, Duration) Notes Start Da te End Date Status Minocycline 100 MG 1 capsule Orally daily prn for 90 days Active hydroCHLOROthiazide 12.5 MG 1 tablet Orally Once a day for 90 Active Metoprolol Tartrate 25 MG 1 tablet Orally Twice a day for 90 Active Lisinopril 20 mg 1 tablet Orally Once a day for 90 Active Terbinafine HCl 250 MG 1 tablet Orally Once a day for 90 days Not-Taking Terbinafine HCl 1 % 1 application Externally Once a day for 28 day(s) Not-Taking Ciclopirox 8 % 1 application Externally Once a day for 28 day(s) Not-Taking Vitamin D 2000 UNIT 1 tablets Orally Once a day Active Magnesium 250 MG 1 tablet with a meal Orally Once a day Active Terbinafine HCl 250 MG TAKE ONE TABLET BY MOUTH ONCE A DAY for 90 Not-Taking Aspir-81 81 MG 1 tablet Orally Once a day for 30 day(s) Aug, Active Pepcid AC Maximum Strength 20 MG 1 tablet at bedtime a s needed Orally Once a day Active Ibuprofen 800 mg 1 tablet Orally twice a day as needed for pain for 90 days Active PROCEDURES No Information RESULTS No Results REASON FOR VISIT No Information MEDICAL (GENERAL) HISTORY Type Description Date Medical History Hypercholesterolemia Medical History Hypertension Medical History Paroxysmal atrial fibrillation Medical History Obstructive sleep apnea syndrome Medical History Osteoarthritis Medical History Restless leg syndrome Medical History Acne rosacea Medical History Vitamin D deficiency Medical History Sensory neuropathy Medical History History of iron deficiency anemia Surgical History Cesarian section Surgical History Cholecystectomy 1992 Surgical History Breast biopsy 01/2006 Surgical History Colonoscopy 07/2006 Surgical History Hysteroscopy with D&C 10/2006 Surgical History EGD and colonoscopy 12/2016 Hospitalization History AFIB 08/2015 Hospitalization History Childbirth Goals Section No Information Health Concerns No Information MEDICAL EQUIPMENT No Information MENTAL STATUS No Information FUNCTIONAL STATUS No Information ASSESSMENTS Encounter Date Diagnosis Assessment Notes Treatment Notes Treatm ent Clinical Notes May, Pelvic pain (ICD-10 - R10.2) PLAN OF TREATMENT Treatment Notes Test Name Order Date CT ABD & Pelvis w/o FOL by MARGARETTE 2021-06-09 Next Appt Details Provider Name:Rip Cameron, 07-31 01:15:00 PM, [address] [place] [address], , [place], [place], [facility], Insurance Providers Payer Name Payer Address Payer Phone Insured Name Patient Relati onship to Insured Coverage Start Date Coverage End Date [facility] [place] [facility] [phone] [facility] [place] [id number] BEATRIZ WITT [id number]
--- OUTSIDE RECORDS SUMMARY | 2021-07-17 08:48 | CCD ---
Author Author [facility] Organization [facility] Address Unknown Phone Unavailable Care Team Providers Care Histotechnologist Supervisor Name Role Phone Ila, Benjamin Hoffmann DO Unavailable Unavailable Rechlin, Benjamin Hoffmann DO Unavailable Unavailable Rechlin, Benjamin Hoffmann DO Unavailable Unavailable Rechlin, Benjamin Hoffmann DO Unavailable Unavailable Rechlin, Benjamin Hoffmann DO Unavailable Unavailable Rechlin, Benjamin Hoffmann DO Unavailable Unavailable Rechlin, Benjamin Hoffmann DO Unavailable Unavailable Rechlin, Benjamin Hoffmann DO Unavailable Unavailable Rechlin, Benjamin Hoffmann DO Unavailable Unavailable Rechlin, Benjamin Hoffmann DO Unavailable Unavailable Rechlin, Benjamin Hoffmann DO Unavailable Unavailable Rechlin, Benjamin Hoffmann DO Unavailable Unavailable Rechlin, Benjamin Hoffmann DO Unavailable Unavailable Rechlin, Benjamin Hoffmann DO Unavailable Unavailable Rechlin, Benjamin Hoffmann DO Unavailable Unavailable Rechlin, Benjamin Hoffmann DO Unavailable Unavailable Rechlin, Benjamin Hoffmann DO Unavailable Unavailable Rechlin, Benjamin Hoffmann DO Unavailable Unavailable Rechlin, Benjamin Hoffmann DO Unavailable Unavailable Rechlin, Benjamin Hoffmann DO Unavailable Unavailable Rechlin, Benjamin Hoffmann DO Unavailable Unavailable Rechlin, Benjamin Hoffmann DO Unavailable Unavailable Rechlin, Benjamin Hoffmann DO Unavailable Unavailable Rechlin, Benjamin Hoffmann DO Unavailable Unavailable Rechlin, Benjamin Hoffmann DO Unavailable Unavailable Rechlin, Benjamin Hoffmann DO Unavailable Unavailable Rechlin, P Shun DO Unavailable Unavailable Rechlin, P Shun DO Unavailable Unavailable Rechlin, P Shun DO Unavailable Unavailable Rechlin, P Shun DO Unavailable Unavailable Rechlin, P Shun DO Unavailable Unavailable Rechlin, P Shun DO Unavailable Unavailable Rechlin, P Shun DO Unavailable Unavailable Rechlin, P Shun DO Unavailable Unavailable Rechlin, P Shun DO Unavailable Unavailable Rechlin, P Shun DO Unavailable Unavailable Rechlin, P Shun DO Unavailable Unavailable Rechlin, P Shun DO Unavailable Unavailable Rechlin, P Shun DO Unavailable Unavailable Rechlin, P Shun DO Unavailable Unavailable Rechlin, P Shun DO Unavailable Unavailable Rechlin, P Shun DO Unavailable Unavailable Rechlin, P Shun DO Unavailable Unavailable Rechlin, P Shun DO Unavailable Unavailable Rechlin, P Shun DO Unavailable Unavailable Rechlin, P Shun DO Unavailable Unavailable Rechlin, P Shun DO Unavailable Unavailable Rechlin, P Shun DO Unavailable Unavailable Rechlin, P Shun DO Unavailable Unavailable Rechlin, P Shun DO Unavailable Unavailable Rechlin, P Shun DO Unavailable Unavailable [place], N Epi PARK ATTENDANT Unavailable Unavailable [place]annah, N Epi PARK ATTENDANT Unavailable Unavailable [place], N Epi PARK ATTENDANT Unavailable Unavailable [place], N Epi PARK ATTENDANT Unavailable Unavailable [place], N Epi PARK ATTENDANT Unavailable Unavailable [place], N Epi PARK ATTENDANT Unavailable Unavailable [place], N Epi PARK ATTENDANT Unavailable Unavailable [place], N Epi PARK ATTENDANT Unavailable Unavailable [place], N Epi PARK ATTENDANT Unavailable Unavailable [place], N Epi PARK ATTENDANT Unavailable Unavailable [place], N Epi PARK ATTENDANT Unavailable Unavailable [place], N Epi PARK ATTENDANT Unavailable Unavailable [place], N Epi PARK ATTENDANT Unavailable Unavailable [place], N Epi PARK ATTENDANT Unavailable Unavailable [place], N Epi PARK ATTENDANT Unavailable Unavailable [place], N Epi PARK ATTENDANT Unavailable Unavailable [place], N Epi PARK ATTENDANT Unavailable Unavailable [place], N Epi PARK ATTENDANT Unavailable Unavailable [place], N Epi PARK ATTENDANT Unavailable Unavailable [place], N Epi PARK ATTENDANT Unavailable Unavailable [place], N Epi PARK ATTENDANT Unavailable Unavailable [place], N Epi PARK ATTENDANT Unavailable Unavailable [place], N Epi PARK ATTENDANT Unavailable Unavailable [place], N Epi PARK ATTENDANT Unavailable Unavailable [place], N Epi PARK ATTENDANT Unavailable Unavailable [place], N Epi PARK ATTENDANT Unavailable Unavailable [place], N Epi PARK ATTENDANT Unavailable Unavailable [place], N Epi PARK ATTENDANT Unavailable Unavailable [place], N Epi PARK ATTENDANT Unavailable Unavailable [place], N Epi PARK ATTENDANT Unavailable Unavailable [place], N Epi PARK ATTENDANT Unavailable Unavailable [place], N Epi PARK ATTENDANT Unavailable Unavailable [place], N Epi PARK ATTENDANT Unavailable Unavailable Re-disclosure Warning The records that you are about to access may contain information from federally-assisted alcohol or drug abuse programs. If such information is present, then the following federally mandated warning applies: This information has been disclosed to you from records protected by federal confidentiality rules (42 CFR part 2). The federal rules prohibit you from making any further disclosure of this information unless further disclosure is expressly permitted by the written consent of the person to whom it pertains or as otherwise permitted by 42 CFR part 2. A general authorization for the release of medical or other information is NOT sufficient for this purpose. The Federal rules restrict any use of the information to criminally investigate or prosecute any alcohol or drug abuse patient.The records that you are about to access may contain highly sensitive health information, the redisclosure of which is protected by Article 27-F of the [facility] Public Health law. If you continue you may have access to information: Regarding HIV / AIDS; Provided by facilities licensed or operated by the [facility] Office of Mental Health; or Provided by the [facility] Office for People With Developmental Disabilities. If such information is present, then the following [facility] mandated warning applies: This information has been disclosed to you from confidential records which are protected by state law. State law prohibits you from making any further disclosure of this information without the specific written consent of the person to whom it pertains, or as otherwise permitted by law. Any unauthorized further disclosure in violation of state law may result in a fine or senior care sentence or both. A general authorization for the release of medical or other information is NOT sufficient authorization for further disc losure. Family History Family Member Name Family Member Gender Family Member Status Date o f Status Description Data Source(s) Unknown Unknown Problem MEDENT ([facility], ) Unknown Unknown Problem MED[facility] ([facility] mother dementia - ? vascular, father Unknown Female Encounters Encounter Providers Location Date Indications Data Source(s ) [place] [address] [facility] [address] 06/09/2021 12:00:00 AM EDT eCW1 ([facility]) Outpatient Attender: Shun Marie/Steven/Russ/French duque 04/16/2021 09:30:00 AM EDT MEDENT ([facility]) Outpatient Attender: Epi Nuñez NP SJP.SANTANA-SJP.SANTANA 021 12:00:00 AM EDT - 02/24/2021 01:36:01 PM EDT [facility] TeleMedicine Est. Pt. Level 3 [address] [place] [address] 09/29/2020 12:00:00 AM EST eCW1 (Critical access hospital) [facility] [address] [address] 09/26/2020 12:00:00 AM EST eCW1 ([facility]) [place] [address] [facility] [place] [address] 09/23/2020 12:00:00 AM EST eCW1 ([facility]) [place] [address] [address] 09/09/2020 12:00:00 AM EST eCW1 ([facility]) Outpatient [address] [address] 08/12/2020 12:00:00 AM EST eCW1 ([facility]) Immunizations Vaccine Date Status Description Data Source(s) COVID-19 dose #2 given elsewhere Unspecified 12/23/2020 10:2 2:00 AM EDT completed eCW1 ([facility]) COVID-19 VACCINE Pfizer 12/23/2020 12:00:00 AM EDT completed [facility] Vaccine Series Complete: YESThis Data wa s Submitted to [facility] Via [employer]. COVID-19 dose #1 given elsewhere Unspecified 12/02/2020 10:1 4:00 AM EDT completed eCW1 ([facility]) COVID-19 VACCINE Pfizer 12/02/2020 12:00:00 AM EDT completed [facility] Vaccine Series Complete: NOThis Data was Submitted to [facility] [employer]. Medications Medication Brand Name Start Date Product Form Dose Route Admi nistrative Instructions Pharmacy Instructions Status Indications Reaction Description Data Source(s) 1 % 06/17/2021 12:00:00 AM EDT drops,suspension 10 INSTILL 1 DROP INTO THE LEFT EYE FOUR TIMES A DAY, START 3 DAYS PRIOR TO SURGERY INSTILL 1 DROP INTO THE LEFT EYE FOUR TIMES A DAY, START 3 DAYS PRIOR TO SURGERY SOLD: 06/22/2021 [facility] 0.5 % 06/17/2021 12:00:00 AM EDT drops 5 INSTILL 1 DROP INTO THE LEFT EYE FOUR TIMES A DAY, START 3 DAYS PRIOR TO SURGERY INSTILL 1 DROP INTO THE LEFT EYE FOUR TIMES A DAY, START 3 DAYS PRIOR TO SURGERY SOLD: 06/22/2021 [facility] Polymyxin B 01501 UNT/ML / Trimethoprim 1 MG/ML Ophthalmic Solution 10,000 unit- 1 mg/mL POLYMYXIN B SULF/TRIMETHOPRIM 06/17/2021 12:00:00 AM EDT drops 1 0 INSTILL 1 DROP IN THE LEFT EYE FOUR TIMES A DAY START 3 DAYS PRIOR TO SURGERY INSTILL 1 DROP IN THE LEFT EYE FOUR TIMES A DAY START 3 DAYS PRIOR TO SURGERY SOLD: 06/22/2021 [facility] Insurance Providers Payer name Policy type / Coverage type Policy ID Covered alliance party ID Covered alliance party's relationship to marie Policy Marie Plan Information [id number] [place] 306/806 [id number] HU2 [id number] [place] 302/307 [id number] HU2 [id number] [place]/307 [id number] HU2 [id number] [employer] BCBS [id number] [facility] VYS [employer] BCBS [id number] [place] P[place] 302/307 [id number] [id number] BCBS of [facility] 0 [id number] Famil y Dependent Kevin Witt 0 [place] P[place] 302/307 [id number] HU2 [id number] ANSI-Commercial [id number] [place] P[place] 302/307 [id number] HU2 [id number] [employer] BCBS Health Maintenance Organization (HMO) [id number] Family Dependent [id number] ANSI-Commercial [id number] BS Of [place] Commercial [id number] Family Dependent V [id number] BS Of [place] Commercial [id number] Family Dependent Y [id number] [place] 306/806 [id number] HU2 [id number] [employer] BCBS B [id number] P VYS [place] 306/806 [id number] HU2 [id number] BS [place] Commercial [id number] Family Dependent ANSI-Commercial [id number] [place] P[place] 302/307 [id number] HU2 [id number] [place] 302/307 [id number] HU2 [id number] [employer] BCBS B [id number] O VYS [employer] BCBS B [id number] S VYS ANSI-Commercial [id number] ANSI-Commercial [id number] ANSI-Commercial [id number] ANSI-Commercial [id number] Problems, Conditions, and Diagnoses Code Display Name Description Problem Type Effective Dates Data Source(s) I10 Essential (primary) hypertension Essential (primary) h ypertension Diagnosis 02/24/2021 01:07:[address] [facility] I48.0 Paroxysmal atrial fibrillation Paroxysmal atrial fibri llation Diagnosis 02/24/2021 01:07:[address] [facility] Surgeries/Procedures Procedure Description Date Indications Data Source(s) OFFICE OUTPATIENT VISIT 15 MINUTES 04/16/2021 12:00:00 AM EDT CARLOS ([facility], ) Results No Information Social History Code Duration Value Status Description Data Source(s ) Smoking 06/01/2021 12:00:00 AM EDT Never Smoker completed Never S moker eCW1 ([facility]) Smoking 09/29/2020 12:00:00 AM EST Never Smoker completed Never S moker eCW1 ([facility]) Smoking 09/09/2020 12:00:00 AM EST Never Smoker completed Never S moker eCW1 ([facility]) Smoking 09/09/2020 12:00:00 AM EST Never Smoker completed Never S moker eCW1 ([facility]) Smoking 08/12/2020 12:00:00 AM EST Never Smoker completed Never S moker eCW1 ([facility]) Vital Signs ID Date Data Source UNK Name Value Range Interpretation Code Description Data Source(s) Systolic blood pressure 134 mm[Hg] 134 mm[Hg] M KHANH ([facility], ) Diastolic blood pressure 72 mm[Hg] 72 mm[Hg] CARLOS ([facility], ) Heart rate 68 /min 68 /min CARLOS ([facility], ) Oxygen saturation in Arterial blood by Pulse oximetry 97 % 97 % [facility] ([facility]) Body height 62 [in_i] 62 [in_i] [facility] ([facility]) 5'2" Body weight 201.00 [lb_av] 201.00 [lb_av] MEDEN T ([facility]) Body mass index (BMI) [Ratio] 36.8 kg/m2 36.8 k g/m2 [facility] ([facility]) [place] body weight 110 [lb_av] 110 [lb_av] MEDEN T ([facility]) Body weight 91.174 kg 91.174 kg [facility] ([facility]) Body surface area Derived from formula 1.92 m2 1.92 m2 [facility] ([facility]) Systolic blood pressure 118 mm[Hg] 118 mm[Hg] [facility] Diastolic blood pressure 66 mm[Hg] 66 mm[Hg] [facility] Heart rate 56 /min 56 /min [facility] Respiratory rate 16 /min 16 /min [facility] Body height 157.[address] [facility] Body weight 93.[address] [facility] Body mass index (BMI) [Ratio] 37.86 kg/m2 37.86 kg/m2 [facility] Body weight 204 [lb_av] 204 [lb_av] eCW1 ([facility]) Body height 62.5 [in_i] 62.5 [in_i] W1 ([facility]) Body mass index (BMI) [Ratio] 36.71 kg/m2 36.71 kg/m2 W1 ([facility]) Body weight 204.0 [lb_av] 204.0 [lb_av] W1 ([facility]) Body height 62.5 [in_i] 62.5 [in_i] eCW1 ([facility]) Body mass index (BMI) [Ratio] 36.71 kg/m2 36.71 kg/m2 [facility] ([facility]) Systolic blood pressure 128 mm[Hg] 128 mm[Hg] e CW1 ([facility]) Diastolic blood pressure 74 mm[Hg] 74 mm[Hg] W1 ([facility]) Body weight 205 [lb_av] 205 [lb_av] [facility] ([facility]) Body height [in_i] [facility] ([facility]) Body mass index (BMI) [Ratio] 36.89 kg/m2 36.89 kg/m2 [facility] ([facility]) Systolic blood pressure 138 mm[Hg] 138 mm[Hg] e CW1 ([facility]) Diastolic blood pressure 84 mm[Hg] 84 mm[Hg] [facility] ([facility])
[2021-07-17] MEDS ORDERED: MIDAZOLAM INJ 2MG/2ML VIAL (J2250 PER 1MG) As Ordered ONE (10:57)
[2021-07-17 11:50] VITALS: BP 134/63
--- NOTE | 2021-07-18 11:44 | RO ---
OPERATIVE NOTE DATE OF OPERATION: 07/17/2021 PREOPERATIVE DIAGNOSIS: Mature cataract left eye. POSTOPERATIVE DIAGNOSIS: Mature cataract left eye. PROCEDURE: Phacoemulsification, cataract extraction, implantation intraocular lens left eye. SURGEON: Kadeem Wilson MD TRANSLATIONAL SPECIALIST: COMPLICATIONS: None. ESTIMATED BLOOD LOSS: Zero mL. CONDITION: Excellent to recovery room with shield over left eye. LENS: [employer]of IQ PanOptix Trifocal model TFNT00, power 21.5 diopter, phaco energy 2.38 CDE. ANESTHESIA: MAC and topical. INDICATIONS FOR PROCEDURE: The patient experienced decreased vision associated with cataract formation and this was confirmed with slit lamp. Informed consent was obtained for cataract surgery and placement of lens. She wished to have trifocal lens and visual aberrations sometimes associated with those lenses were reviewed. She gave informed consent. DESCRIPTION OF PROCEDURE: Prior to entering the operating room the patient was identified, the left eye was marked. She was wheeled to the OR suite, positioned on stretcher. Topical Tetracaine was placed in both eyes. She was prepped and draped with 5% Povidone iodine to lids and lashes. Lashes taped with Tegaderm. Speculum was placed in the left eye. 1 mm side port was created in 5:30 position, 1% preservative-free Lidocaine was injected. Viscoat was injected. A 2.6 mm step-groove clear corneal incision was made temporally. A bent cystitome, needle and Utrata forceps were used to fashion continuous curvilinear capsulorrhexis. BSS was used to hydrodissect. The lens was found to rotate freely. It was phacoemulsified using yshmdw-oif-nkvyjus technique. Residual cortex was removed with I/A. Provisc was injected to expand the capsular bag and anterior chamber and pressure was checked. The intraoperative aberrometer was used to check the eyes power and cylinder for the lens. The predicted lens matched the ORA calculated lens. The above mentioned lens was injected using lens delivery system, positioned using Craig hook. Residual viscoelastic was removed with the I/A. BSS was used to hydrate the cornea. Antibiotic prophylaxis was injected. The speculum was removed from the eye. A shield was taped over the eye. The patient was taken in excellent condition to recovery room.
== END 2021-07-17 11:58 | disposition home or self-care (01) ==
LOC: M SDC 08:45
PROVIDERS: ATTEND Ophthalmology
DX: H25.12 Age-related nuclear cataract, left eye (principal); I48.91 Unspecified atrial fibrillation; I10 Essential (primary) hypertension; K44.9 Diaphragmatic hernia without obstruction or gangrene; K21.9 Gastro-esophageal reflux disease without esophagitis; G47.30 Sleep apnea, unspecified; Z79.82 Long term (current) use of aspirin; Z79.899 Other long term (current) drug therapy; Z88.0 Allergy status to penicillin
CPT/HCPCS: 66984; 92015; J1097; J2250; J2280

== ENCOUNTER → 2021-08-10 | Outpatient (CLI) | payer BC ==
[~2021-08-10] MED LIST changes: -BSS IRR 500ML/OMIDRIA 4ML IRR BAG (OR ONLY) As Ordered ONE; -DUOVISC (0.50ML VISCOAT/0.85ML PROVISC) OPHTH KIT As Ordered ONE; -MOXIFLOXACIN 0.8MG 0.8ML INTRAOCULAR SYRINGE As Ordered ONE; -OFLOXACIN 0.3 % (OCUFLOX) OPTH SOL 5ML OS SCH; -PHENYLEPHRINE 1.5%/LIDOCAINE 1% INTRAOCULAR 0.8ML SYRINGE As Ordered ONE; -PHENYLEPHRINE 2.5% OPHTH SOL 2ML OS SCH; -PROPARACAINE 0.5% OPHTH SOL 15ML OS ONE; -TROPICAMIDE 1% OPHTH SOLN 2ML OS SCH
== END ==
LOC: M LABSMTC 10:05
PROVIDERS: ATTEND Anesthesiology
DX: Z01.812 Encounter for preprocedural laboratory examination (principal); Z20.822 Contact with and (suspected) exposure to COVID-19

== ENCOUNTER 2021-08-14 07:40 | Day surgery (SDC) | payer BC ==
[~2021-08-14] VITALS: Ht 157.5 cm; Wt 93.0 kg
[~2021-08-14 07:40] MED LIST changes: +BSS IRR 500ML/OMIDRIA 4ML IRR BAG (OR ONLY) As Ordered ONE; +LIDOCAINE 1% SDV 5ML VIAL As Ordered ONE; +OFLOXACIN 0.3 % (OCUFLOX) OPTH SOL 5ML OD SCH; +PHENYLEPHRINE 2.5% OPHTH SOL 2ML OD SCH; +POLYTRIM OPTH DROPS 10ML As Ordered ONE; +PROPARACAINE 0.5% OPHTH SOL 15ML OD ONE; +TROPICAMIDE 1% OPHTH SOLN 2ML OD SCH; +UNRESOLVED CLARIFICATION ENTRY XX SCH
[2021-08-14] MEDS ORDERED: fentaNYL 100 MCG/2 ML INJECTION (J3010) As Ordered ONE (07:57)
[2021-08-14] MEDS ORDERED: MIDAZOLAM INJ 2MG/2ML VIAL (J2250 PER 1MG) As Ordered ONE (07:57)
[2021-08-14] MEDS ORDERED: ACETYLCHOLINE OPHTH SOLN 1% 2ML (MIOCHOL-E) As Ordered ONE (10:00)
[2021-08-14 10:40] VITALS: BP 157/69
--- NOTE | 2021-08-14 12:31 | ROOPDOC ---
[facility] Report Of Operation Report of Operation DATE OF PROCEDURE: 08/14/21 PREPROCEDURE DIAGNOSES: Mature cataract right eye. POSTPROCEDURE DIAGNOSES: Same. PROCEDURE PERFORMED: Phacoemulsification cataract extraction implantation intraocular lens right eye. SURGEON: Kadeem Purvis MD REFUSE COLLECTOR SUPERVISOR: None ANESTHESIA: MAC. ESTIMATED BLOOD LOSS: Approximately 0 cc mL. COMPLICATIONS: None. LENS: TFNT00 trifocal lens power 22.0 diopters. SPECIMENS REMOVED: [None] INDICATIONS: Patient experienced decreased vision associated with cataract formation. Slit-lamp examination confirmed the diagnosis. Informed consent was obtained for removal of the cataract and placement of intraocular lens. PROCEDURE NOTE: Patient was identified in the holding room and the operative eye was marked. Patient was wheeled spine the OR suite and positioned on the stretcher. The lids lashes and periocular face of the operative eye were prepped with 5% povidone iodine. The lashes were taped with a Tegaderm dressing. A speculum was placed in the operative eye. 1 mm side-port was created. 1% preservative-free lidocaine was injected. Viscoat was injected. A 2.6 mm stepped groove clear cornea incision was made temporally. A bent cystotome needle and Utrata forceps were used to fashion a continuous curvilinear capsulorhexis. BSS was used to hydrodissect. The lens was found to rotate freely. The lens was phacoemulsified using a divide and conquer technique. Residual cortex was removed with the I/A. Provisc was injected to expand the capsular bag and the pressure was checked. The ora intraoperative parameter was used to check lens power. the lens was injected using the lens delivery system and positioned with a Craig hook. Residual viscoelastic was removed with the I/A. BSS was used to hydrate the corneal wound. Antibiotic prophylaxis was injected. The speculum was removed from the eye. A shield was taped over the eye. The patient was sent in excellent condition to the recovery room with a shield. KADEEM PURVIS M.D. Aug 14, 2021 12:31
== END 2021-08-14 10:48 | disposition home or self-care (01) ==
LOC: M SDC 07:40
PROVIDERS: ATTEND Ophthalmology
DX: H25.11 Age-related nuclear cataract, right eye (principal); I10 Essential (primary) hypertension; I48.91 Unspecified atrial fibrillation; K21.9 Gastro-esophageal reflux disease without esophagitis; K44.9 Diaphragmatic hernia without obstruction or gangrene; G47.33 Obstructive sleep apnea (adult) (pediatric); Z79.82 Long term (current) use of aspirin; Z79.899 Other long term (current) drug therapy; Z88.5 Allergy status to narcotic agent; Z88.0 Allergy status to penicillin
CPT/HCPCS: 66984; 92015; J1097; J2250; J3010

== ENCOUNTER → 2021-09-14 | Outpatient (CLI) | payer BC ==
[~2021-09-14] MED LIST changes: -BSS IRR 500ML/OMIDRIA 4ML IRR BAG (OR ONLY) As Ordered ONE; -LIDOCAINE 1% SDV 5ML VIAL As Ordered ONE; -LISI10TA15 PO; +LISI10TA24 PO; -OFLOXACIN 0.3 % (OCUFLOX) OPTH SOL 5ML OD SCH; -PHENYLEPHRINE 2.5% OPHTH SOL 2ML OD SCH; -POLYTRIM OPTH DROPS 10ML As Ordered ONE; -PROPARACAINE 0.5% OPHTH SOL 15ML OD ONE; -TROPICAMIDE 1% OPHTH SOLN 2ML OD SCH; -UNRESOLVED CLARIFICATION ENTRY XX SCH
== END ==
LOC: M WHC 08:06
PROVIDERS: ATTEND Specialist
DX: Z12.31 Encounter for screening mammogram for malignant neoplasm of breast (principal)
CPT/HCPCS: 76642; 77066; G0279

== ENCOUNTER → 2022-02-11 | Outpatient (CLI) | payer BC ==
[2022-02-11 10:29] LABS: BASO # 0.1 10^3/uL (0.0-0.2); EOS # 0.1 10^3/uL (0.0-0.5); EOS % 2.7 % (0.0-3.0); HEMATOCRIT 40.4 % (36.0-47.0); HEMOGLOBIN 13.5 g/dl (12.0-15.5); LYMPH # 1.8 10^3/uL (1.5-5.0); LYMPH % 35.1 % (24.0-44.0); MEAN CORPUSCULAR HEMOGLOBIN 31.6 pg (27.0-33.0); MEAN CORPUSCULAR HGB CONC 33.4 g/dl (32.0-36.5); MEAN CORPUSCULAR VOLUME 94.6 fl (80.0-96.0); MONO # 0.4 10^3/uL (0.0-0.8); MONO % 7.5 % (2.0-8.0); NEUTROPHILS # 2.8 10^3/uL (1.5-8.5); NEUTROPHILS % 53.7 % (36.0-66.0); PLATELET COUNT, AUTOMATED 356 10^3/uL (150-450); RED BLOOD COUNT 4.27 10^6/uL (4.00-5.40); WHITE BLOOD COUNT 5.2 10^3/uL (4.0-10.0)
[2022-02-11 10:59] LABS: HEMOGLOBIN A1c 5.5 %
[2022-02-11 11:05] LABS: ALBUMIN 3.9 GM/DL (3.2-5.2); ALT/SGPT 39 U/L (12-78); BILIRUBIN,TOTAL 0.7 MG/DL (0.2-1.0); BLOOD UREA NITROGEN 20 MG/DL (7-18); CALCIUM LEVEL 9.9 MG/DL (8.8-10.2); CARBON DIOXIDE LEVEL 30 MEQ/L (21-32); CHLORIDE LEVEL 105 MEQ/L (98-107); CHOLESTEROL LEVEL 216 MG/DL (<200); CREATININE FOR GFR 0.75 MG/DL (0.55-1.30); GLOMERULAR FILTRATION RATE > 60.0 (>45); GLUCOSE, FASTING 118 MG/DL (70-100); HDL CHOLESTEROL 50 MG/DL (>40); LDL CHOLESTEROL 140 MG/DL (<100); MAGNESIUM LEVEL 2.4 MG/DL (1.8-2.4); NON-HDL-C 166 MG/DL; POTASSIUM SERUM 3.9 MEQ/L (3.5-5.1); SODIUM LEVEL 141 MEQ/L (136-145); TOTAL PROTEIN 6.9 GM/DL (6.4-8.2); TRIGLYCERIDES LEVEL 132 MG/DL (<150)
[2022-02-11 11:11] LABS: FOLATE 9.3 NG/ML; TOTAL 25(OH) VITAMIN D 44.5 NG/ML (30.0-100.0); VITAMIN B12 LEVEL 298 PG/ML
== END ==
LOC: M WUC 08:24
PROVIDERS: ATTEND Internal Medicine
DX: I10 Essential (primary) hypertension (principal); E78.00 Pure hypercholesterolemia, unspecified; G47.33 Obstructive sleep apnea (adult) (pediatric); E55.9 Vitamin D deficiency, unspecified; G62.9 Polyneuropathy, unspecified; R73.01 Impaired fasting glucose

== ENCOUNTER → 2022-03-10 | Outpatient (CLI) | payer BC | LOC: M PLAIMG 08:18 → M PLALAB 08:18 | PROVIDERS: ATTEND Family Medicine | DX: M47.812 Spondylosis without myelopathy or radiculopathy, cervical region (principal) ==

== ENCOUNTER → 2022-03-22 | Outpatient (CLI) | payer BC | LOC: M CARPUL 10:40 | PROVIDERS: ATTEND Family Medicine | DX: I35.9 Nonrheumatic aortic valve disorder, unspecified (principal) ==

== ENCOUNTER → 2022-04-05 | Outpatient (CLI) | payer BC | LOC: M RAD 14:26 | PROVIDERS: ATTEND Family Medicine | DX: E04.1 Nontoxic single thyroid nodule (principal) ==

== ENCOUNTER 2022-04-27 14:15 | Outpatient (RCR) | payer BC | END 2022-04-28 | LOC: M PT 14:15 | PROVIDERS: ATTEND Family Medicine | DX: M47.812 Spondylosis without myelopathy or radiculopathy, cervical region (principal) ==

== ENCOUNTER 2022-05-26 13:30 | Outpatient (RCR) | payer BC | END 2022-05-28 | LOC: M PT 13:30 | PROVIDERS: ATTEND Family Medicine | DX: M47.812 Spondylosis without myelopathy or radiculopathy, cervical region (principal) ==

== ENCOUNTER 2022-06-10 15:00 | Outpatient (RCR) | payer BC | END 2022-06-28 | LOC: M PT 15:00 | PROVIDERS: ATTEND Family Medicine | DX: M47.812 Spondylosis without myelopathy or radiculopathy, cervical region (principal) ==

== ENCOUNTER → 2022-07-06 | Outpatient (CLI) | payer BC, MEDICARE ==
[2022-07-06 12:01] LABS: APPEARANCE, URINE MANUAL CLEAR (CLEAR); COLOR, URINE MANUAL LT YELLOW (YELLOW)
[2022-07-06 12:02] LABS: BILIRUBIN, URINE MANUAL NEGATIVE (NEGATIVE); BLOOD URINE MANUAL NEGATIVE (NEGATIVE); GLUCOSE, URINE (UA) MANUAL NEGATIVE (NEGATIVE); KETONE, URINE MANUAL NEGATIVE (NEGATIVE); LEUKOCYTE ESTERASE, URINE MAN TRACE (NEGATIVE); NITRITE, URINE MANUAL NEGATIVE (NEGATIVE); PROTEIN, URINE MANUAL NEGATIVE (NEGATIVE); UROBILINOGEN, URINE MANUAL NORMAL (NORMAL)
[2022-07-06 12:03] LABS: BASO % 0.8 % (0.0-1.0); EOS # 0.1 10^3/uL (0.0-0.5); HEMATOCRIT 43.8 % (36.0-47.0); HEMOGLOBIN 14.3 g/dl (12.0-15.5); LYMPH # 1.8 10^3/uL (1.5-5.0); LYMPH % 36.5 % (24.0-44.0); MEAN CORPUSCULAR HEMOGLOBIN 30.6 pg (27.0-33.0); MEAN CORPUSCULAR HGB CONC 32.6 g/dl (32.0-36.5); MEAN CORPUSCULAR VOLUME 93.8 fl (80.0-96.0); MONO # 0.4 10^3/uL (0.0-0.8); NEUTROPHILS # 2.7 10^3/uL (1.5-8.5); NEUTROPHILS % 53.5 % (36.0-66.0); PLATELET COUNT, AUTOMATED 371 10^3/uL (150-450); RED BLOOD COUNT 4.67 10^6/uL (4.00-5.40)
[2022-07-06 12:06] LABS: HEMATOCRIT 43.7 % (36.0-47.0)
[2022-07-06 12:15] LABS: BACTERIA, URINE SMALL AMOUNT; HYALINE CAST, URINE NONE SEEN /lpf (0-1); RBC, URINE 0-1 /hpf (0-3); SQUAMOUS EPITHELIAL CELL URINE SMALL AMOUNT /hpf (SMALL AMT); WBC, URINE 0-1 /hpf (0-3)
[2022-07-06 14:24] LABS: CREATININE, URINE 16.2 MG/DL; MALB URINE SIEMENS < 5.0 MG/L; MAU/CREAT RATIO 30.8 MCG/MG (0.0-30.0)
[2022-07-06 14:58] LABS: BLOOD UREA NITROGEN 24 MG/DL (7-18); CALCIUM LEVEL 9.7 MG/DL (8.8-10.2); CARBON DIOXIDE LEVEL 29 MEQ/L (21-32); CHLORIDE LEVEL 99 MEQ/L (98-107); CREATININE FOR GFR 0.69 MG/DL (0.55-1.30); FERRITIN 137 NG/ML (8-252); GLOMERULAR FILTRATION RATE > 60.0 (>45); GLUCOSE, FASTING 106 MG/DL (70-100); NT-PRO BNP 31 PG/ML (<125); PHOSPHORUS LEVEL 3.7 MG/DL (2.5-4.9); POTASSIUM SERUM 3.7 MEQ/L (3.5-5.1); SODIUM LEVEL 135 MEQ/L (136-145)
[2022-07-06 15:26] LABS: PTH INTACT 51.1 PG/ML (18.5-88.0); VITAMIN B12 LEVEL 527 PG/ML (247-911)
[2022-07-06 19:01] LABS: HEMOGLOBIN A1c 5.5 %
[2022-07-07 16:09] LABS: APOLIPOPROTEIN B/A-1 RATIO 0.7 ratio (0.0-0.6); INSULIN LEVEL 9.2 uIU/mL (2.6-24.9)
== END ==
LOC: M LAB 10:47
PROVIDERS: ATTEND Family Medicine
DX: E53.8 Deficiency of other specified B group vitamins (principal)

== ENCOUNTER → 2022-10-26 | Outpatient (CLI) | payer BC | LOC: M WHC 15:11 | PROVIDERS: ATTEND Specialist | DX: Z12.31 Encounter for screening mammogram for malignant neoplasm of breast (principal) ==

== ENCOUNTER → 2022-10-26 | Outpatient (REF) | payer BC | LOC: M SFHCWAGY 17:27 | PROVIDERS: ATTEND Specialist | DX: Z12.4 Encounter for screening for malignant neoplasm of cervix (principal); Z77.9 Other contact with and (suspected) exposures hazardous to health | CPT/HCPCS: 87624; G0123 ==

== ENCOUNTER → 2023-01-05 | Outpatient (REF) | payer BC ==
[2023-01-05 17:47] LABS: ALBUMIN 3.8 G/DL (3.2-5.2); ALKALINE PHOSPHATASE 60 U/L (46-116); ALT/SGPT 53 U/L (7.0-40); AST/SGOT 33 U/L (<34); BILIRUBIN,TOTAL 0.7 MG/DL (0.3-1.2); BLOOD UREA NITROGEN 21 MG/DL (9-23); CALCIUM LEVEL 9.7 MG/DL (8.3-10.6); CARBON DIOXIDE LEVEL 33 MMOL/L (20-31); CHLORIDE LEVEL 104 MMOL/L (98-107); CHOLESTEROL LEVEL 192 MG/DL (<200); CHOLESTEROL RISK RATIO 4.42 (<5); CREATININE FOR GFR 0.75 MG/DL (0.55-1.30); GLOMERULAR FILTRATION RATE > 60.0 (>45); GLUCOSE, FASTING 100 MG/DL (74-106); HDL CHOLESTEROL 43.4 MG/DL (>40); LDL CHOLESTEROL 124.6 MG/DL (<100); NON-HDL-C 148.6 MG/DL; SODIUM LEVEL 139 MMOL/L (136-145); TOTAL PROTEIN 6.7 G/DL (5.7-8.2); TRIGLYCERIDES LEVEL 120 MG/DL (<150)
[2023-01-05 17:50] LABS: FREE T4 1.24 NG/DL (0.89-1.76); THYROID STIMULATING HORMONE 0.991 uIU/ML (0.55-4.78)
[2023-01-05 17:52] LABS: URIC ACID 7.1 MG/DL (3.1-7.8)
[2023-01-05 18:02] LABS: HEMOGLOBIN A1c 5.7 % (4.0-6.0)
[2023-01-05 18:16] LABS: CREATININE, URINE 151.3 MG/DL
[2023-01-05 18:17] LABS: MALB URINE SIEMENS < 3.0 MG/L; MAU/CREAT RATIO 1.9 MCG/MG (0.0-30.0)
== END ==
LOC: M SFHCCLAY 10:31
PROVIDERS: ATTEND Family Medicine
DX: I10 Essential (primary) hypertension (principal); E78.2 Mixed hyperlipidemia; I51.89 Other ill-defined heart diseases; R73.01 Impaired fasting glucose

== ENCOUNTER → 2023-07-07 | Outpatient (CLI) | payer BC ==
[2023-07-07 09:34] LABS: INR 0.98; PROTHROMBIN TIME 12.7 SECONDS (12.5-14.5)
[2023-07-07 09:35] LABS: PARTIAL THROMBOPLASTIN TIME 27.6 SECONDS (24.8-34.2)
[2023-07-07 09:48] LABS: CHOLESTEROL RISK RATIO 4.81 (<5); HDL CHOLESTEROL 46.3 MG/DL (>40); LDL CHOLESTEROL 151.9 MG/DL (<100); NON-HDL-C 176.7 MG/DL
[2023-07-07 09:49] LABS: PTH INTACT 47.1 PG/ML (18.5-88.0)
[2023-07-07 09:50] LABS: TOTAL 25(OH) VITAMIN D 45.9 NG/ML (20.0-100.0)
[2023-07-07 10:01] LABS: HEMOGLOBIN A1c 5.4 % (4.0-6.0)
== END ==
LOC: M LAB 08:14
PROVIDERS: ATTEND Family Medicine
DX: K21.9 Gastro-esophageal reflux disease without esophagitis (principal)

== ENCOUNTER → 2023-07-25 | Outpatient (CLI) | payer BC | LOC: M WHC 08:37 | PROVIDERS: ATTEND Family Medicine | DX: K75.81 Nonalcoholic steatohepatitis (NASH) (principal) ==

== ENCOUNTER → 2024-01-05 | Outpatient (CLI) | payer BC ==
[~2024-01-05] MED LIST changes: -MINO100T PO; +MINO100T6 PO
[2024-01-05 08:50] LABS: APPEARANCE, URINE CLEAR (CLEAR); BACTERIA, URINE AUTO NEGATIVE (NEGATIVE); BILIRUBIN, URINE AUTO NEGATIVE (NEGATIVE); BLOOD, URINE BLOOD NEGATIVE (NEGATIVE); COLOR, URINE YELLOW (YELLOW); GLUCOSE, URINE (UA) AUTO NEGATIVE (NEGATIVE); KETONE, URINE AUTO NEGATIVE (NEGATIVE); LEUKOCYTE ESTERASE, URINE AUTO NEGATIVE (NEGATIVE); NITRITE, URINE AUTO NEGATIVE (NEGATIVE); PROTEIN, URINE AUTO NEGATIVE (NEGATIVE); RBC, URINE AUTO 1 /HPF (0-3); SPECIFIC GRAVITY URINE AUTO 1.019 (1.002-1.035); SQUAMOUS EPITHELIAL CELL UR AU 0 /HPF (0-6); UROBILINOGEN, URINE AUTO 0.2 mg/dL (0.0-2.0); WBC, URINE AUTO 1 /HPF (0-3)
[2024-01-05 08:55] LABS: BASO # 0.1 10^3/uL (0.0-0.2); BASO % 1.3 % (0.0-1.0); EOS # 0.1 10^3/uL (0.0-0.5); EOS % 2.4 % (0.0-3.0); HEMATOCRIT 41.4 % (36.0-47.0); HEMOGLOBIN 14.3 g/dl (12.0-15.5); LYMPH # 1.7 10^3/uL (1.5-5.0); LYMPH % 36.4 % (24.0-44.0); MEAN CORPUSCULAR HEMOGLOBIN 31.1 pg (27.0-33.0); MEAN CORPUSCULAR HGB CONC 34.5 g/dl (32.0-36.5); MONO # 0.3 10^3/uL (0.0-0.8); MONO % 7.3 % (2.0-8.0); NEUTROPHILS # 2.4 10^3/uL (1.5-8.5); NEUTROPHILS % 52.4 % (36.0-66.0); PLATELET COUNT, AUTOMATED 337 10^3/uL (150-450); WHITE BLOOD COUNT 4.6 10^3/uL (4.0-10.0)
[2024-01-05 09:16] LABS: CREATININE, URINE 88.6 MG/DL
[2024-01-05 09:17] LABS: MALB URINE SIEMENS < 3.0 MG/L; MAU/CREAT RATIO 3.3 MCG/MG (0.0-30.0)
[2024-01-05 09:19] LABS: HEMOGLOBIN A1c 5.4 % (4.0-6.0)
[2024-01-05 09:32] LABS: ALBUMIN 3.9 G/DL (3.2-5.2); ALKALINE PHOSPHATASE 62 U/L (46-116); ALT/SGPT 39 U/L (7.0-40); AST/SGOT 24 U/L (<34); BILIRUBIN,TOTAL 0.5 MG/DL (0.3-1.2); BLOOD UREA NITROGEN 22 MG/DL (9-23); CALCIUM LEVEL 9.5 MG/DL (8.3-10.6); CARBON DIOXIDE LEVEL 31 MMOL/L (20-31); CHLORIDE LEVEL 103 MMOL/L (98-107); CHOLESTEROL LEVEL 207 MG/DL (<200); CHOLESTEROL RISK RATIO 4.46 (<5); CREATININE FOR GFR 0.64 MG/DL (0.55-1.30); GLOMERULAR FILTRATION RATE > 60.0 (>45); GLUCOSE, FASTING 104 MG/DL (74-106); HDL CHOLESTEROL 46.4 MG/DL (>40); LDL CHOLESTEROL 142.6 MG/DL (<100); NON-HDL-C 160.6 MG/DL; POTASSIUM SERUM 4.1 MMOL/L (3.5-5.1); SODIUM LEVEL 139 MMOL/L (136-145); TOTAL PROTEIN 6.8 G/DL (5.7-8.2); TRIGLYCERIDES LEVEL 90 MG/DL (<150)
[2024-01-05 09:35] LABS: FERRITIN 105.5 NG/ML (7.3-270.7); VITAMIN B12 LEVEL 733 PG/ML (211-911)
== END ==
LOC: M LAB 08:15
PROVIDERS: ATTEND Family Medicine
DX: E53.8 Deficiency of other specified B group vitamins (principal); E78.2 Mixed hyperlipidemia; R73.01 Impaired fasting glucose

== ENCOUNTER → 2024-01-17 | Outpatient (CLI) | payer BC | LOC: M WHC 13:26 | PROVIDERS: ATTEND Family Medicine | DX: E04.1 Nontoxic single thyroid nodule (principal) ==

== ENCOUNTER → 2024-07-05 | Outpatient (REF) | payer BC ==
[2024-07-05 19:25] LABS: BASO % 0.8 % (0.0-1.0); EOS # 0.1 10^3/uL (0.0-0.5); EOS % 1.5 % (0.0-3.0); HEMATOCRIT 42.9 % (36.0-47.0); HEMOGLOBIN 13.9 g/dl (12.0-15.5); LYMPH # 1.7 10^3/uL (1.5-5.0); LYMPH % 35.9 % (24.0-44.0); MEAN CORPUSCULAR HEMOGLOBIN 30.2 pg (27.0-33.0); MEAN CORPUSCULAR HGB CONC 32.4 g/dl (32.0-36.5); MEAN CORPUSCULAR VOLUME 93.1 fl (80.0-96.0); MONO # 0.3 10^3/uL (0.0-0.8); MONO % 6.7 % (2.0-8.0); NEUTROPHILS # 2.6 10^3/uL (1.5-8.5); NEUTROPHILS % 54.9 % (36.0-66.0); PLATELET COUNT, AUTOMATED 372 10^3/uL (150-450); RED BLOOD COUNT 4.61 10^6/uL (4.00-5.40); WHITE BLOOD COUNT 4.8 10^3/uL (4.0-10.0)
[2024-07-05 19:49] LABS: C REACTIVE PROTEIN QUANTITATIV < 0.40 MG/DL (<1.0)
[2024-07-05 19:52] LABS: ALBUMIN 3.8 G/DL (3.2-5.2); ALKALINE PHOSPHATASE 62 U/L (35-104); ALT/SGPT 37 U/L (7.0-40); AST/SGOT 16 U/L (<34); BILIRUBIN,TOTAL 0.6 MG/DL (0.3-1.2); BLOOD UREA NITROGEN 18 MG/DL (9-23); CALCIUM LEVEL 9.8 MG/DL (8.3-10.6); CARBON DIOXIDE LEVEL 30 MMOL/L (20-31); CHLORIDE LEVEL 106 MMOL/L (98-107); CHOLESTEROL LEVEL 253 MG/DL (<200); CHOLESTEROL RISK RATIO 4.84 (<5); CREATININE FOR GFR 0.56 MG/DL (0.55-1.30); GLOMERULAR FILTRATION RATE > 60.0 (>45); GLUCOSE, FASTING 93 MG/DL (74-106); HDL CHOLESTEROL 52.2 MG/DL (>40); MAGNESIUM LEVEL 2.4 MG/DL (1.8-2.4); NON-HDL-C 200.8 MG/DL; POTASSIUM SERUM 3.9 MMOL/L (3.5-5.1); PTH INTACT 49.4 PG/ML (18.5-88.0); SODIUM LEVEL 141 MMOL/L (136-145); TOTAL PROTEIN 7.2 G/DL (5.7-8.2); TRIGLYCERIDES LEVEL 139 MG/DL (<150)
[2024-07-05 19:55] LABS: FERRITIN 95.5 NG/ML (7.3-270.7); TOTAL 25(OH) VITAMIN D 41.2 NG/ML (20.0-100.0)
[2024-07-05 20:25] LABS: HEMOGLOBIN A1c 5.7 % (4.0-6.0)
== END ==
LOC: M LABDRAWC 16:55
PROVIDERS: ATTEND Family Medicine
DX: E53.8 Deficiency of other specified B group vitamins (principal); E78.2 Mixed hyperlipidemia; E55.9 Vitamin D deficiency, unspecified; I10 Essential (primary) hypertension; R73.01 Impaired fasting glucose

== ENCOUNTER → 2024-09-13 | Outpatient (REF) | payer BC ==
[2024-09-13 18:53] LABS: ALBUMIN 3.9 G/DL (3.2-5.2); ALKALINE PHOSPHATASE 65 U/L (35-104); ALT/SGPT 51 U/L (7.0-40); AST/SGOT 25 U/L (<34); BILIRUBIN,TOTAL 0.6 MG/DL (0.3-1.2); BLOOD UREA NITROGEN 22 MG/DL (9-23); CARBON DIOXIDE LEVEL 31 MMOL/L (20-31); CHLORIDE LEVEL 103 MMOL/L (98-107); CHOLESTEROL LEVEL 187 MG/DL (<200); CHOLESTEROL RISK RATIO 3.63 (<5); CPK CREATINE PHOSPHOKINASE 70 U/L (34-145); CREATININE FOR GFR 0.61 MG/DL (0.55-1.30); GLOMERULAR FILTRATION RATE > 60.0 (>45); GLUCOSE, FASTING 105 MG/DL (74-106); HDL CHOLESTEROL 51.4 MG/DL (>40); LDL CHOLESTEROL 110.8 MG/DL (<100); NON-HDL-C 135.6 MG/DL; POTASSIUM SERUM 4.3 MMOL/L (3.5-5.1); SODIUM LEVEL 142 MMOL/L (136-145); TOTAL PROTEIN 7.3 G/DL (5.7-8.2); TRIGLYCERIDES LEVEL 124 MG/DL (<150)
== END ==
LOC: M SFHCPLAZ 09:54
PROVIDERS: ATTEND Family Medicine
DX: R73.01 Impaired fasting glucose (principal); E78.2 Mixed hyperlipidemia; E53.8 Deficiency of other specified B group vitamins; I10 Essential (primary) hypertension; K76.0 Fatty (change of) liver, not elsewhere classified

== ENCOUNTER → 2024-11-15 | Outpatient (REF) | payer BC ==
[2024-11-19 13:44] LABS: HPV APTIMA Not Detected (Not Detected)
== END ==
LOC: M SFHCWAGY 15:19
PROVIDERS: ATTEND Specialist
DX: Z01.419 Encounter for gynecological examination (general) (routine) without abnormal findings (principal)
CPT/HCPCS: 87624; G0123

== ENCOUNTER → 2024-11-15 | Outpatient (CLI) | payer BC | LOC: M WHC 12:53 | PROVIDERS: ATTEND Specialist | DX: Z12.31 Encounter for screening mammogram for malignant neoplasm of breast (principal); R92.313 Mammographic fatty tissue density, bilateral breasts ==

== ENCOUNTER → 2025-01-04 | Outpatient (CLI) | payer BC ==
[2025-01-04 09:31] LABS: BASO % 0.8 % (0.0-1.0); EOS # 0.1 10^3/uL (0.0-0.5); EOS % 2.2 % (0.0-3.0); HEMATOCRIT 41.6 % (36.0-47.0); LYMPH # 1.5 10^3/uL (1.5-5.0); LYMPH % 29.3 % (24.0-44.0); MEAN CORPUSCULAR HEMOGLOBIN 30.6 pg (27.0-33.0); MEAN CORPUSCULAR HGB CONC 33.7 g/dl (32.0-36.5); MONO # 0.3 10^3/uL (0.0-0.8); MONO % 6.7 % (2.0-8.0); NEUTROPHILS # 3.1 10^3/uL (1.5-8.5); NEUTROPHILS % 60.8 % (36.0-66.0); PLATELET COUNT, AUTOMATED 340 10^3/uL (150-450); RED BLOOD COUNT 4.57 10^6/uL (4.00-5.40); WHITE BLOOD COUNT 5.1 10^3/uL (4.0-10.0)
[2025-01-04 09:56] LABS: ALBUMIN 3.7 G/DL (3.2-5.2); ALKALINE PHOSPHATASE 62 U/L (35-104); ALT/SGPT 34 U/L (7.0-40); AST/SGOT 23 U/L (<34); BILIRUBIN,TOTAL 0.7 MG/DL (0.3-1.2); BLOOD UREA NITROGEN 18 MG/DL (9-23); CALCIUM LEVEL 9.5 MG/DL (8.3-10.6); CARBON DIOXIDE LEVEL 34 MMOL/L (20-31); CHLORIDE LEVEL 103 MMOL/L (98-107); CHOLESTEROL LEVEL 199 MG/DL (<200); CHOLESTEROL RISK RATIO 4.59 (<5); CREATININE FOR GFR 0.66 MG/DL (0.55-1.30); GLOMERULAR FILTRATION RATE > 90.0 (>45); GLUCOSE, FASTING 104 MG/DL (74-106); HDL CHOLESTEROL 43.3 MG/DL (>40); LDL CHOLESTEROL 120.1 MG/DL (<100); NON-HDL-C 155.7 MG/DL; POTASSIUM SERUM 4.1 MMOL/L (3.5-5.1); SODIUM LEVEL 143 MMOL/L (136-145); TOTAL PROTEIN 6.7 G/DL (5.7-8.2); TRIGLYCERIDES LEVEL 178 MG/DL (<150)
[2025-01-04 09:57] LABS: FERRITIN 91.6 NG/ML (7.3-270.7)
[2025-01-04 09:58] LABS: HEMOGLOBIN A1c 5.8 % (4.0-6.0); VITAMIN B12 LEVEL 713 PG/ML (211-911)
[2025-01-04 18:04] LABS: INR 0.88; PARTIAL THROMBOPLASTIN TIME 28.1 SECONDS (24.8-34.2); PROTHROMBIN TIME 12.3 SECONDS (12.5-14.5)
== END ==
LOC: M LAB 08:15
PROVIDERS: ATTEND Family Medicine
DX: E53.8 Deficiency of other specified B group vitamins (principal); E78.2 Mixed hyperlipidemia; R73.01 Impaired fasting glucose; I10 Essential (primary) hypertension; K76.0 Fatty (change of) liver, not elsewhere classified

== ENCOUNTER → 2025-02-28 | Outpatient (CLI) | payer BC | LOC: M RAD 06:46 | PROVIDERS: ATTEND Family Medicine | DX: M48.062 Spinal stenosis, lumbar region with neurogenic claudication (principal); M47.816 Spondylosis without myelopathy or radiculopathy, lumbar region; M54.89 Other dorsalgia ==

== ENCOUNTER → 2025-07-16 | Outpatient (CLI) | payer BC ==
[2025-07-16 09:25] LABS: BASO # 0.1 10^3/uL (0.0-0.2); BASO % 1.1 % (0.0-1.0); EOS # 0.1 10^3/uL (0.0-0.5); EOS % 1.9 % (0.0-3.0); LYMPH # 1.7 10^3/uL (1.5-5.0); LYMPH % 35.7 % (24.0-44.0); MONO # 0.4 10^3/uL (0.0-0.8); MONO % 7.5 % (2.0-8.0); NEUTROPHILS # 2.5 10^3/uL (1.5-8.5); NEUTROPHILS % 53.6 % (36.0-66.0); PLATELET COUNT, AUTOMATED 336 10^3/uL (150-450)
[2025-07-16 09:38] LABS: ALT/SGPT 51 U/L (7.0-40); AST/SGOT 31 U/L (<34); CALCIUM LEVEL 9.2 MG/DL (8.3-10.6); CARBON DIOXIDE LEVEL 31 MMOL/L (20-31); CHLORIDE LEVEL 104 MMOL/L (98-107); CHOLESTEROL LEVEL 230 MG/DL (<200); CHOLESTEROL RISK RATIO 4.36 (<5); CREATININE FOR GFR 0.69 MG/DL (0.55-1.30); GLOMERULAR FILTRATION RATE > 90.0 (>45); LDL CHOLESTEROL 152.9 MG/DL (<100); MAGNESIUM LEVEL 2.0 MG/DL (1.8-2.4); NON-HDL-C 177.3 MG/DL; POTASSIUM SERUM 4.3 MMOL/L (3.5-5.1); SODIUM LEVEL 144 MMOL/L (136-145); TRIGLYCERIDES LEVEL 122 MG/DL (<150)
[2025-07-16 09:50] LABS: ESTIMATED AVERAGE GLUCOSE 117.0 MG/DL (60-110)
== END ==
LOC: M LAB 08:14
PROVIDERS: ATTEND Family Medicine
DX: E53.8 Deficiency of other specified B group vitamins (principal); R73.01 Impaired fasting glucose; I10 Essential (primary) hypertension; E78.2 Mixed hyperlipidemia; K74.00 Hepatic fibrosis, unspecified